=== PATIENT | female | born 1935 | race Caucasian/White ===

== ENCOUNTER → 2020-03-26 13:57 | Outpatient (BNVA) | payer MEDICARE, SELFPAY | PROVIDERS: PCP Family Medicine; Referring Provider Family Medicine; Visit Provider Internal Medicine Endocrinology, Diabetes & Metabolism | DX: E11.65 Type 2 diabetes mellitus with hyperglycemia (principal); E11.22 Type 2 diabetes mellitus with diabetic chronic kidney disease; I12.9 Hypertensive chronic kidney disease with stage 1 through stage 4 chronic kidney disease, or unspecified chronic kidney disease; N18.30 Chronic kidney disease, stage 3 unspecified; E11.42 Type 2 diabetes mellitus with diabetic polyneuropathy; Z79.4 Long term (current) use of insulin; E78.5 Hyperlipidemia, unspecified | CPT/HCPCS: 82947; 99214 ==

== ENCOUNTER 2020-04-04 11:24 | Outpatient (REF) | payer MEDICARE, SELFPAY ==
[2020-04-04 13:41] LABS: Estimated Average Glucose 189 mg/dL; Hemoglobin A1c % 8.2 %
[2020-04-04 14:13] LABS: Alanine Aminotransferase 23 U/L (0-31); Anion Gap 16 (12-20); Blood Urea Nitrogen 32 mg/dL (9-16); Carbon Dioxide 26 mmol/L (22-29); Chloride 102 mmol/L (96-108); Estimated Glomerular Filt Rate 30; Glucose Fasting 203 mg/dL (60-99); Potassium 4.4 mmol/l (3.3-5.1); Sodium 140 mmol/L (135-145)
[2020-04-04 14:29] LABS: Microalbum/Creatinine Ratio Ur 9.3 ug/mg cr
== END 2020-04-04 11:25 | disposition home or self-care (01) ==
LOC: HO.10HDL 11:24
PROVIDERS: Visit Provider Family Medicine
DX: I10 Essential (primary) hypertension (principal); E11.9 Type 2 diabetes mellitus without complications; E78.00 Pure hypercholesterolemia, unspecified; Z79.899 Other long term (current) drug therapy
CPT/HCPCS: 80051; 82043; 82550; 82565; 82947; 83036; 84460; 84520

== ENCOUNTER 2020-07-03 12:10 | Outpatient (REF) | payer MEDICARE, SELFPAY ==
--- NOTE | 2020-07-03 13:52 | MHC.AU.P13 ---
Adult Audiological Evaluation Date of Visit: 07/03/20 Manufacturing Engineer Paint Used: Not Applicable Reason for Appointment: Audiologic re-evaluation due to increasing hearing and speech understanding difficulties. Martina purchased binaural hearing aids at this office 11 years; however, she is not using them at this time as they are not providing enough benefit for her. Previous Hearing Test Results: 03/21/2019 [facility] Moderately-severe to severe sensorineural hearing loss with the right ear being 10-15 dB poorer in the high frequencies. Ear History: Family History of Hearing Loss?: Yes History of Ear Wax Buildup: Both Ears Medical History: Medical History: Diabetes High Blood Pressure Medication List: Humalog Injection, Metroprolol, Furosemide, Asprin, Amlodipine, pravastatin, Sertraline. Furosemide is a medication which may increase hearing loss. Hearing Instrument History- Right Ear: Billing Services Manager: [employer] Model: Series 7 DocTree Serial Number: [id number] Battery Size: 13 Repair Warranty: Loss and Damage Warranty: Dispensed By: [facility] Date of Fittin04/25/2009 Hearing Instrument History- Left Ear: Billing Services Manager: [employer] Model: Series 7 BTE Serial Number: [id number] Battery Size: 13 Warranty: Loss and Damage Warranty: Dispensed By: [facility] Date of Fittin04/25/2009 Otoscopy: Right Ear: Partially occluded with cerumen Left Ear: Partially occluded with cerumen Tympanometry: Right Ear: Not performed at today's visit Left Ear: Not performed at today's visit Hearing Evaluation: Transducer(s) Used: Insert Earphones Bone Conduction Method: Conventional Audiometry Stimuli Used: Pure Tones Right Ear: Description of Hearing: Moderately-severe to severe sensorineural hearing loss Left Ear: Description of Hearing: Moderately-severe to severe sensorineural hearing loss Speech Recognition Threshold (SRT): Method Used: Monitored Live Voice Stimuli Used: Right Ear: 55 dB HL Left Ear: 55 dB HL Word Discrimination: Method: Recorded Lists Word Lists Used: NU-6 Right Ear: 64% at 90 dB HL Left Ear: 76% at 90 dB HL Most Comfortable Level (MCL): Right Ear: 90 dB HL Left Ear: 90 dB HL QuickSIN: 18 dB SNR Loss suggesting Martina experiences severe difficulty understanding speech with increasing levels of background noise. Comparison: Compared to the most recent evaluation: Hearing is stable. Recommendations: Recommendations: Audiological re-evaluation in one year. Trial with amplification is recommended. Medical clearance from a physician is required before fitting. Follow-up with physician for cerumen removal. Recommendations (Other): Hearing Aid Fitting appointment scheduled for 07/21/2020 Diagnosis: Primary Diagnosis: H90.3 Bilateral Sensorineural Hearing Loss Services Performed: Services Performed: Comprehensive Audiological Evaluation (CPT 75109) Signature: Provider: Leonor Palencia, CCC-A
--- NOTE | 2020-07-03 14:04 | MHC.AU.P13 ---
Hearing Aid Evaluation- Binaural Date of Visit: 07/03/20 Mechanical Tech Used: Not Applicable Description of Hearing: Moderately-severe to severe sensorineural hearing loss bilaterally Current Hearing Instrument Information: Binaural 2009 Esther Series 7 BTE with slim tubes Additional Information: Martina reports she is not receiving any benefit from her current hearing aid despite the fact both aids are amplifying. Given the degree of hearing loss, new binaural hearing aids are recommended as part of the remediation process. Hearing Instrument Selection: Right Ear: [employer] Operations: Phonak Model: Audeo P 50-13T Battery Size: 13 Color: Sand Beige Gelatin Dynamite Packing Operator: #3 Power Type of Dome: Medium Power Left Ear: [employer] Operations: Phonak Model: Audeo P 50-13T Battery Size: 13 Color: Sand Beige Gelatin Dynamite Packing Operator: #3 Power Type of Dome: Medium Power Plan: Plan of Care for Hearing Instrument Fitting: Patient wishes to purchase hearing aids as prescribed Action Taken/Action Needed: Medical Clearance to be requested from PCP/ENT Comments: Advise cerumen removal prior to hearing aid fitting scheduled for 07/21/2020 Diagnosis Code(s): Primary Diagnosis: H90.3 Bilateral Sensorineural Hearing Loss Services Performed: Hearing Aid Evaluation [place] Non-Quantity Charges: HANC: NonBillable Event Signature: Provider: Leonor Palencia, LILLY-A
--- NOTE | 2020-07-03 14:08 | MHC.AU.MED ---
Medical Clearance for Hearing Instrumentation Date: 07/03/20 Patient Name: Martina Hurst Date of : 1935 Primary Care Provider: Referring Provider: Raimundo Tse MD We have seen your patient on 07/03/20 and have determined that they are a candidate for amplification (See accompanying report). Specifically, they would benefit from: Hearing aid use in both ears There is a statute that addresses Medical Evaluation Requirements prior to fitting a patient with a hearing aid. According to [place] statute 265 CMR:6.03(1), (a) General. Except as provided in 265 CMR 6.03(1)(b), a electrician shall not sell a hearing aid unless the prospective user has presented to the electrician a written statement signed by a licensed physician that states that the patient's hearing loss has been medically evaluated and the patient may be considered a candidate for a hearing aid. The medical evaluation must have taken place within the preceding six months. Please note: Due to the [place] Statute referenced above, we cannot accept a signature other than that of a licensed physician. WORKFORCE DEVELOPMENT VICE PRESIDENT and PA signatures cannot be accepted. I am in agreement with the above recommendation. There is no medical contraindication for hearing instrumentation. Physician Signature Date Physician Name (Printed)
== END 2020-07-03 12:11 | disposition home or self-care (01) ==
LOC: HO.SH 12:10
PROVIDERS: Visit Provider Family Medicine
DX: H90.3 Sensorineural hearing loss, bilateral (principal)
CPT/HCPCS: 92557

== ENCOUNTER → 2020-07-15 08:20 | Outpatient (BNVA) | payer MEDICARE, SELFPAY | PROVIDERS: PCP Family Medicine; Visit Provider Internal Medicine Endocrinology, Diabetes & Metabolism | DX: E11.65 Type 2 diabetes mellitus with hyperglycemia (principal); E11.21 Type 2 diabetes mellitus with diabetic nephropathy; E11.22 Type 2 diabetes mellitus with diabetic chronic kidney disease; E11.42 Type 2 diabetes mellitus with diabetic polyneuropathy; I12.9 Hypertensive chronic kidney disease with stage 1 through stage 4 chronic kidney disease, or unspecified chronic kidney disease; N18.32 Chronic kidney disease, stage 3b; Z79.4 Long term (current) use of insulin | CPT/HCPCS: Q3014 ==

== ENCOUNTER 2020-07-30 11:16 | Outpatient (REF) | payer SELFPAY | END 2020-07-30 11:17 | disposition home or self-care (01) | LOC: HO.HAP 11:16 | PROVIDERS: Visit Provider Family Medicine | DX: Z46.1 Encounter for fitting and adjustment of hearing aid (principal); H90.3 Sensorineural hearing loss, bilateral | CPT/HCPCS: V5261 ==

== ENCOUNTER 2020-08-14 12:12 | Outpatient (REF) | payer SELFPAY | END 2020-08-14 12:13 | disposition home or self-care (01) | LOC: HO.HAP 12:12 | PROVIDERS: Visit Provider Family Medicine | DX: Z13.89 Encounter for screening for other disorder (principal) ==

== ENCOUNTER 2020-08-15 12:19 | Outpatient (REF) | payer MEDICARE, SELFPAY ==
[2020-08-15 14:24] LABS: Alanine Aminotransferase 19 U/L (0-31); Anion Gap 11 (12-20); Blood Urea Nitrogen 25 mg/dL (9-16); Carbon Dioxide 29 mmol/L (22-29); Chloride 104 mmol/L (96-108); Estimated Glomerular Filt Rate 33; Glucose Fasting 166 mg/dL (60-99); Potassium 4.3 mmol/L (3.3-5.1); Sodium 140 mmol/L (135-145)
[2020-08-15 14:27] LABS: Estimated Average Glucose 192 mg/dL; Hemoglobin A1c % 8.3 %
== END 2020-08-15 12:20 | disposition home or self-care (01) ==
LOC: HO.10HDL 12:19
PROVIDERS: Absent Provider Internal Medicine Endocrinology, Diabetes & Metabolism; Visit Provider Family Medicine
DX: I10 Essential (primary) hypertension (principal); E11.9 Type 2 diabetes mellitus without complications; E78.00 Pure hypercholesterolemia, unspecified; Z79.899 Other long term (current) drug therapy
CPT/HCPCS: 36415; 80051; 82550; 82565; 82947; 83036; 84460; 84520

== ENCOUNTER 2020-08-28 12:17 | Outpatient (REF) | payer SELFPAY | END 2020-08-28 12:18 | disposition home or self-care (01) | LOC: HO.HAP 12:17 | PROVIDERS: Visit Provider Family Medicine | DX: Z13.89 Encounter for screening for other disorder (principal) ==

== ENCOUNTER 2020-09-11 12:12 | Outpatient (REF) | payer SELFPAY | END 2020-09-11 12:13 | disposition home or self-care (01) | LOC: HO.HAP 12:12 | PROVIDERS: Visit Provider Family Medicine | DX: Z13.89 Encounter for screening for other disorder (principal) ==

== ENCOUNTER → 2020-10-13 13:37 | Outpatient (BNVA) | payer MEDICARE, SELFPAY | PROVIDERS: PCP Family Medicine; Visit Provider Internal Medicine Endocrinology, Diabetes & Metabolism | DX: E11.65 Type 2 diabetes mellitus with hyperglycemia (principal); E11.21 Type 2 diabetes mellitus with diabetic nephropathy; E11.42 Type 2 diabetes mellitus with diabetic polyneuropathy; E11.22 Type 2 diabetes mellitus with diabetic chronic kidney disease; I12.9 Hypertensive chronic kidney disease with stage 1 through stage 4 chronic kidney disease, or unspecified chronic kidney disease; N18.32 Chronic kidney disease, stage 3b; E78.5 Hyperlipidemia, unspecified; Z79.4 Long term (current) use of insulin | CPT/HCPCS: 82947; 99212 ==

== ENCOUNTER → 2021-02-23 13:44 | Outpatient (BNVA) | payer MEDICARE, SELFPAY | PROVIDERS: PCP Family Medicine; Visit Provider Nurse Practitioner Gerontology | DX: E11.42 Type 2 diabetes mellitus with diabetic polyneuropathy (principal); E11.21 Type 2 diabetes mellitus with diabetic nephropathy; E11.22 Type 2 diabetes mellitus with diabetic chronic kidney disease; I12.9 Hypertensive chronic kidney disease with stage 1 through stage 4 chronic kidney disease, or unspecified chronic kidney disease; N18.32 Chronic kidney disease, stage 3b; E78.5 Hyperlipidemia, unspecified; Z79.4 Long term (current) use of insulin | CPT/HCPCS: 82947; 83036; 99212 ==

== ENCOUNTER 2021-06-10 10:35 | Outpatient (REF) | payer MEDICARE, SELFPAY ==
[2021-06-10 11:37] LABS: Estimated Average Glucose 212 mg/dL
[2021-06-10 11:53] LABS: Creatinine Urine 164.06 mg/dL; Microalbum/Creatinine Ratio Ur 10.3 ug/mg cr
[2021-06-10 12:02] LABS: Alanine Aminotransferase 19 U/L (0-31); Anion Gap 11 (12-20); Aspartate Amino Transferase 21 U/L (5-31); Blood Urea Nitrogen 31 mg/dL (9-16); Carbon Dioxide 29 mmol/L (22-29); Chloride 102 mmol/L (96-108); Estimated Glomerular Filt Rate 30; Glucose Fasting 232 mg/dL (60-99); Potassium 4.2 mmol/L (3.3-5.1); Sodium 138 mmol/L (135-145)
== END 2021-06-10 10:36 | disposition home or self-care (01) ==
LOC: HO.10HDL 10:35
PROVIDERS: Visit Provider Family Medicine
DX: E11.9 Type 2 diabetes mellitus without complications (principal); I10 Essential (primary) hypertension; K75.81 Nonalcoholic steatohepatitis (NASH)
CPT/HCPCS: 36415; 80051; 82043; 82565; 82947; 83036; 84450; 84460; 84520

== ENCOUNTER → 2021-08-24 13:46 | Outpatient (BNVA) | payer MEDICARE, SELFPAY | PROVIDERS: PCP Family Medicine; Visit Provider Nurse Practitioner Gerontology | DX: E11.42 Type 2 diabetes mellitus with diabetic polyneuropathy (principal); I12.9 Hypertensive chronic kidney disease with stage 1 through stage 4 chronic kidney disease, or unspecified chronic kidney disease; E11.22 Type 2 diabetes mellitus with diabetic chronic kidney disease; N18.32 Chronic kidney disease, stage 3b; E78.5 Hyperlipidemia, unspecified; Z79.4 Long term (current) use of insulin | CPT/HCPCS: 82947; 83036; 99212 ==

== ENCOUNTER 2021-08-24 15:05 | Outpatient (REF) | payer SELFPAY | END 2021-08-24 15:06 | disposition home or self-care (01) | LOC: HO.HAP 15:05 | PROVIDERS: Visit Provider Family Medicine | DX: Z13.89 Encounter for screening for other disorder (principal) ==

== ENCOUNTER 2021-08-28 13:42 | Outpatient (REF) | payer SELFPAY | END 2021-08-28 13:43 | disposition home or self-care (01) | LOC: HO.HAP 13:42 | PROVIDERS: Visit Provider Family Medicine | DX: Z13.89 Encounter for screening for other disorder (principal) ==

== ENCOUNTER 2021-11-11 13:11 | Outpatient (REF) | payer MEDICARE, SELFPAY ==
[2021-11-11 14:27] LABS: Alanine Aminotransferase 22 U/L (0-31); Albumin Level 4.6 g/dL (3.5-5.0); Alkaline Phosphatase 95 U/L (39-117); Anion Gap 16 (12-20); Aspartate Amino Transferase 27 U/L (5-31); Bilirubin Total 0.3 mg/dL (0.0-1.0); Blood Urea Nitrogen 26 mg/dL (9-16); Calcium 10.1 mg/dL (8.4-10.2); Carbon Dioxide 25 mmol/L (22-29); Chloride 103 mmol/L (96-108); Cholesterol 198 mg/dL; Estimated Glomerular Filt Rate 29; Glucose Fasting 191 mg/dL (60-99); HDL Cholesterol 47 mg/dL; LDL Cholesterol Calculated 112 mg/dl; Potassium 4.5 mmol/L (3.3-5.1); Sodium 139 mmol/L (135-145); Total Protein 7.6 g/dL (6.5-8.0); Triglycerides 198 mg/dL
[2021-11-11 14:28] LABS: Alanine Aminotransferase 22 U/L (0-31); Anion Gap 15 (12-20); Aspartate Amino Transferase 27 U/L (5-31); Blood Urea Nitrogen 27 mg/dL (9-16); Carbon Dioxide 25 mmol/L (22-29); Chloride 104 mmol/L (96-108); Cholesterol 199 mg/dL; Estimated Glomerular Filt Rate 29; Glucose Fasting 190 mg/dL (60-99); HDL Cholesterol 46 mg/dL; LDL Cholesterol Calculated 113 mg/dl; Potassium 4.5 mmol/L (3.3-5.1); Sodium 139 mmol/L (135-145); Triglycerides 200 mg/dL
[2021-11-11 14:53] LABS: Vitamin B12 931 pg/mL (200-900)
[2021-11-11 15:53] LABS: Creatinine Urine 225.96 mg/dL; Microalbum/Creatinine Ratio Ur 37.6 ug/mg cr
[2021-11-11 17:07] LABS: Estimated Average Glucose 171 mg/dL; Hemoglobin A1c % 7.6 %
== END 2021-11-11 13:12 | disposition home or self-care (01) ==
LOC: HO.LAB 13:11
PROVIDERS: Nurse Practitioner Gerontology; PCP Family Medicine; Visit Provider Family Medicine
DX: E11.21 Type 2 diabetes mellitus with diabetic nephropathy (principal); E11.65 Type 2 diabetes mellitus with hyperglycemia; I10 Essential (primary) hypertension; E78.00 Pure hypercholesterolemia, unspecified; Z79.899 Other long term (current) drug therapy
CPT/HCPCS: 36415; 80051; 80053; 80061; 82043; 82550; 82565; 82607; 82947; 83036; 84450; 84460; 84520; 95250

== ENCOUNTER 2021-11-19 11:57 | Outpatient (REF) | payer SELFPAY | END 2021-11-19 11:58 | disposition home or self-care (01) | LOC: HO.HAP 11:57 | PROVIDERS: Visit Provider Family Medicine | DX: Z13.89 Encounter for screening for other disorder (principal) ==

== ENCOUNTER → 2021-12-02 09:19 | Outpatient (BNVA) | payer MEDICARE, SELFPAY | PROVIDERS: PCP Family Medicine; Visit Provider Nurse Practitioner Gerontology | DX: E11.21 Type 2 diabetes mellitus with diabetic nephropathy (principal); E11.42 Type 2 diabetes mellitus with diabetic polyneuropathy; E11.22 Type 2 diabetes mellitus with diabetic chronic kidney disease; I12.9 Hypertensive chronic kidney disease with stage 1 through stage 4 chronic kidney disease, or unspecified chronic kidney disease; N18.32 Chronic kidney disease, stage 3b; E78.5 Hyperlipidemia, unspecified; Z79.4 Long term (current) use of insulin | CPT/HCPCS: Q3014 ==

== ENCOUNTER 2022-07-01 09:32 | Outpatient (REF) | payer MEDICARE, SELFPAY ==
[2022-07-01 10:44] LABS: Estimated Average Glucose 209 mg/dL; Hemoglobin A1c % 8.9 %
[2022-07-01 11:08] LABS: Alanine Aminotransferase 14 U/L (0-31); Anion Gap 12 (12-20); Aspartate Amino Transferase 18 U/L (5-31); Blood Urea Nitrogen 27 mg/dL (9-16); Carbon Dioxide 27 mmol/L (22-29); Chloride 104 mmol/L (96-108); Estimated Glomerular Filt Rate 34; Glucose Fasting 230 mg/dL (60-99); Potassium 4.1 mmol/L (3.3-5.1); Sodium 139 mmol/L (135-145)
== END 2022-07-01 09:33 | disposition home or self-care (01) ==
LOC: HO.10HDL 09:32
PROVIDERS: Visit Provider Family Medicine
DX: I10 Essential (primary) hypertension (principal); E11.9 Type 2 diabetes mellitus without complications; K75.81 Nonalcoholic steatohepatitis (NASH)
CPT/HCPCS: 36415; 80051; 82565; 82947; 83036; 84450; 84460; 84520

== ENCOUNTER 2022-11-15 10:09 | Outpatient (REF) | payer MEDICARE, SELFPAY ==
[2022-11-15 11:45] LABS: Estimated Average Glucose 189 mg/dL; Hemoglobin A1c % 8.2 %
[2022-11-15 11:56] LABS: Alanine Aminotransferase 15 U/L (0-31); Anion Gap 12 (12-20); Aspartate Amino Transferase 20 U/L (5-31); Blood Urea Nitrogen 23 mg/dL (9-16); Carbon Dioxide 27 mmol/L (22-29); Chloride 106 mmol/L (96-108); Estimated Glomerular Filt Rate 34; Glucose Fasting 210 mg/dL (60-99); Potassium 4.4 mmol/L (3.3-5.1); Sodium 141 mmol/L (135-145)
[2022-11-15 12:01] LABS: Microalbum/Creatinine Ratio Ur 33.2 ug/mg cr
== END 2022-11-15 10:10 | disposition home or self-care (01) ==
LOC: HO.10HDL 10:09
PROVIDERS: Visit Provider Family Medicine
DX: E11.9 Type 2 diabetes mellitus without complications (principal); I10 Essential (primary) hypertension; K75.81 Nonalcoholic steatohepatitis (NASH)
CPT/HCPCS: 36415; 80051; 82043; 82565; 82947; 83036; 84450; 84460; 84520

== ENCOUNTER 2022-12-17 14:37 | Outpatient (REF) | payer SELFPAY | END 2022-12-17 14:38 | disposition home or self-care (01) | LOC: HO.HAP 14:37 | PROVIDERS: Visit Provider Family Medicine | DX: Z13.89 Encounter for screening for other disorder (principal) ==

== ENCOUNTER 2023-08-12 10:21 | Outpatient (REF) | payer MEDICARE, SELFPAY ==
[2023-08-12 11:42] LABS: Estimated Average Glucose 192 mg/dL; Hemoglobin A1c % 8.3 % (<6.0)
[2023-08-12 11:54] LABS: Alanine Aminotransferase 14 U/L (0-31); Anion Gap 13 (12-20); Aspartate Amino Transferase 19 U/L (5-31); Blood Urea Nitrogen 24 mg/dL (9-16); Carbon Dioxide 29 mmol/L (22-29); Chloride 104 mmol/L (96-108); Estimated Glomerular Filt Rate 35; Glucose Fasting 226 mg/dL (60-99); Potassium 3.8 mmol/L (3.3-5.1); Sodium 142 mmol/L (135-145)
[2023-08-12 12:05] LABS: Creatinine Urine 132.69 mg/dL; Microalbum/Creatinine Ratio Ur 30.1 ug/mg cr (<30)
[2023-08-22 16:28] LABS: FIB-ALT 13 U/L (6-29); FIB-Alpha-2-Macroglobulin 284 mg/dL (106-279); FIB-Apolipoprotein A1 179 mg/dL (101-198); FIB-GGT 31 U/L (3-65); FIB-Haptoglobin 152 mg/dL (43-212); FIB-Total Bilirubin 0.5 mg/dL (0.2-1.2); Liver Fibrosis Score 0.43; Liver Fibrosis Stage F1-F2; Nec Inflam Act Grade A0; Nec Inflam Act Score 0.05
== END 2023-08-12 10:22 | disposition home or self-care (01) ==
LOC: HO.10HDL 10:21
PROVIDERS: Internal Medicine; Visit Provider Family Medicine
DX: I10 Essential (primary) hypertension (principal); E11.9 Type 2 diabetes mellitus without complications; K75.81 Nonalcoholic steatohepatitis (NASH)
CPT/HCPCS: 36415; 80051; 81596; 82043; 82565; 82570; 82947; 83036; 84450; 84460; 84520

== ENCOUNTER 2024-01-16 09:45 | Outpatient (REF) | payer MEDICARE, SELFPAY ==
[2024-01-16 14:31] LABS: Estimated Average Glucose 160 mg/dL; Hemoglobin A1c % 7.2 % (<6.0)
[2024-01-16 14:46] LABS: Alanine Aminotransferase 13 U/L (0-31); Anion Gap 14 (12-20); Aspartate Amino Transferase 20 U/L (5-31); Blood Urea Nitrogen 28 mg/dL (9-16); Carbon Dioxide 27 mmol/L (22-29); Chloride 106 mmol/L (96-108); Estimated Glomerular Filt Rate 40; Glucose Fasting 44 mg/dL (60-99); Potassium 3.7 mmol/L (3.3-5.1); Sodium 143 mmol/L (135-145)
[2024-01-16 17:25] LABS: Estimated Average Glucose 163 mg/dL; Hemoglobin A1c % 7.3 % (<6.0)
[2024-01-16 17:26] LABS: Microalbum/Creatinine Ratio Ur 33.7 ug/mg cr (<30)
[2024-01-16 17:31] LABS: Alanine Aminotransferase 14 U/L (0-31); Anion Gap 12 (12-20); Aspartate Amino Transferase 19 U/L (5-31); Blood Urea Nitrogen 31 mg/dL (9-16); Carbon Dioxide 29 mmol/L (22-29); Chloride 105 mmol/L (96-108); Estimated Glomerular Filt Rate 32; Glucose Fasting 185 mg/dL (60-99); Potassium 3.7 mmol/L (3.3-5.1); Sodium 142 mmol/L (135-145)
[2024-01-16 18:09] LABS: Creatinine Urine 142.62 mg/dL; Microalbum/Creatinine Ratio Ur 34.3 ug/mg cr (<30)
[2024-01-23 01:39] LABS: FIB-ALT 11 U/L (6-29); FIB-Alpha-2-Macroglobulin 289 mg/dL (106-279); FIB-Apolipoprotein A1 171 mg/dL (101-198); FIB-GGT 27 U/L (3-65); FIB-Haptoglobin 121 mg/dL (43-212); FIB-Total Bilirubin 0.3 mg/dL (0.2-1.2); Liver Fibrosis Score 0.39; Liver Fibrosis Stage F1-F2; Nec Inflam Act Grade A0; Nec Inflam Act Score 0.03
== END 2024-01-16 09:46 | disposition home or self-care (01) ==
LOC: HO.CHCLDS 09:45
PROVIDERS: PCP Family Medicine; Visit Provider Family Medicine
DX: E11.9 Type 2 diabetes mellitus without complications (principal); I10 Essential (primary) hypertension; K75.81 Nonalcoholic steatohepatitis (NASH)
CPT/HCPCS: 36415; 80051; 81596; 82043; 82565; 82570; 82947; 83036; 84450; 84460; 84520

== ENCOUNTER 2024-01-19 19:29 | Observation (INO) | payer MEDICARE, SELFPAY ==
--- NOTE | 2024-01-19 | ECG_ITS ---
Test Reason : LOW HEART RATE Blood Pressure : / mmHG Vent. Rate : 051 BPM Atrial Rate : 051 BPM P-R Int : 194 ms QRS Dur : 134 ms QT Int : 516 ms P-R-T Axes : 037 007 051 degrees QTc Int : 475 ms Sinus bradycardia Right bundle branch block Abnormal ECG When compared with ECG of 04-SEP-2018 23:07, No significant change was found Referred By: Generic ED Physician Electronically Signed By:HARVINDER PORTER MD
--- NOTE | ~2024-01-19 | XR_ITS ---
EXAMINATION: CHEST 2 VIEWS CLINICAL INFORMATION: Infectious workup. COMPARISON: 09/04/2018. TECHNIQUE: PA and lateral views of the chest obtained. FINDINGS: The lungs are well expanded. No focal infiltrate, effusion, edema, or pneumothorax. Cardiac and mediastinal silhouettes are within normal limits for technique. No acute bony abnormality seen XR/XR chest 2V IMPRESSION: No evidence of acute disease
[2024-01-19 19:42] LABS: Glucose, Whole Blood 127 mg/dL (60-115)
[2024-01-19 19:52] VITALS: BP 168/66; PULSE 57; O2SAT 98
[2024-01-19 20:02] VITALS: BP 156/60; PULSE 48; RESP 14; TEMP 36.8; O2SAT 100; BMI 23.4
[2024-01-19 21:06] LABS: MANUAL DIFF FLAG NO
[2024-01-19 21:11] LABS: Basophils Percent Auto 0.5 % (0-2); Eosinophils Absolute Auto 0.1 X10*3/uL (0.0-0.4); Eosinophils Percent Auto 1.1 % (0-4); Hematocrit 38.1 % (37.0-47.0); Imm Gran Abs Auto 0.03 X10*3/uL (0.00-0.03); Imm Gran Pct Auto 0.4 % (0.0-0.4); Lymphocytes Absolute Auto 1.1 X10*3/uL (1.2-4.9); Lymphocytes Percent Auto 13.3 % (20-40); Mean Corpuscular HGB Conc 34.1 g/dl (31.0-35.0); Mean Corpuscular Volume 93.8 fL (80.0-98.0); Mean Platelet Volume 10.3 fL (9.4-12.3); Monocytes Absolute Auto 0.7 X10*3/uL (0.1-1.2); Neutrophils Absolute Auto 6.1 x10*3/uL (2.0-8.3); Neutrophils Percent Auto 75.7 % (45-73); Platelet Count 199 X10*3/uL (160-400); Red Blood Count 4.06 X10*6/uL (4.20-5.50); Red Cell Distribution Width 13.5 % (11.0-16.0)
[2024-01-19 21:23] LABS: Alanine Aminotransferase 16 U/L (0-31); Albumin Level 4.7 g/dL (3.5-5.0); Alkaline Phosphatase 94 U/L (39-117); Anion Gap 13 (12-20); Aspartate Amino Transferase 23 U/L (5-31); Bilirubin Total 0.3 mg/dL (0.0-1.0); Blood Urea Nitrogen 28 mg/dL (9-16); Calcium 9.6 mg/dL (8.4-10.2); Carbon Dioxide 26 mmol/L (22-29); Chloride 108 mmol/L (96-108); Creatinine Clr Calc Pharmacy 19.5; Estimated Glomerular Filt Rate 35; Glucose Random 98 mg/dL (60-115); Potassium 3.8 mmol/L (3.3-5.1); Sodium 143 mmol/L (135-145); Total Protein 7.5 g/dL (6.5-8.0)
--- NOTE | 2024-01-19 22:32 | ED.GENADULT ---
HPI - General Adult General Chief complaint: General Medical Stated complaint: hypoglycemia, ams Time Seen by Provider: 01/19/24 20:22 History of Present Illness ED Provider: Deuce BRUNO narrative: 88-year-old with past medical history of diabetes, depression, hypertension, dyslipidemia, CKD presenting for presyncope and hypoglycemia. Patient was playing bingo with friends when she became altered. Patient reports experiencing dizziness and almost losing consciousness. There was no fall and EMS was called immediately and found her to be hyperglycemic to the 60s. She was given oral glucose with good effect. Patient arrived to the ED alert and oriented with no active complaints. Patient states that she feels that she is almost at baseline however she also reports that she has been experiencing intermittent hypoglycemia to the 50s for the past 2-3 days Related Data Home Medications ?Medication ?Instructions ?Recorded ?Confirmed amlodipine 10 mg tablet 10 mg PO DAILY 03/26/20 12/02/21 aspirin 81 mg tablet,delayed 81 mg PO DAILY 03/26/20 12/02/21 release (Adult Aspirin Regimen) furosemide 20 mg tablet 20 mg PO DAILY 03/26/20 08/24/21 metoprolol tartrate 25 mg tablet 25 mg PO BID 03/26/20 12/02/21 iyhhgels-bpy-mkjqi acid 0.4 1 tab PO DAILY 03/26/20 12/02/21 mg-lycopene 300 mcg-lutein 250 mcg tablet (Centrum Silver) pravastatin 10 mg tablet 10 mg PO DAILY 03/26/20 12/02/21 sertraline 50 mg tablet 25 mg PO BEDTIME 07/15/20 02/23/21 magnesium 250 mg tablet 250 mg PO DAILY 02/23/21 02/23/21 blood sugar diagnostic (FreeStyle #10 ea 12/02/21 12/02/21 Lite Strips) pantoprazole 40 mg tablet,delayed 40 mg PO DAILY 12/02/21 12/02/21 release Previous Rx's ?Medication ?Instructions ?Recorded pen needle, diabetic 32 gauge x #200 ea 12/02/21 (BD Sheila 2nd Gen Pen Needle) Novolog Mix 70-30 FlexPen U-100 24 unit (0.24 mL) subcut BID 30 12/07/21 Insulin 100 unit/mL subcutaneous days #30 mL pen (insulin asp prt-insulin aspart) Allergies Allergy/AdvReac Type Severity Reaction Status Date / Time atenolol Allergy Unknown Unknown Verified 01/19/24 20:04 atorvastatin Allergy Unknown Unknown Verified 01/19/24 20:04 diltiazem [Cardizem] Allergy Unknown Unknown Verified 01/19/24 20:04 fluoxetine [Prozac] Allergy Unknown Unknown Verified 01/19/24 20:04 gabapentin [Neurontin] Allergy Unknown Unknown Verified 01/19/24 20:04 loratadine Allergy Unknown Unknown Verified 01/19/24 20:04 No Known Drug Allergies Allergy Unknown NONE Unverified 02/28/20 16:34 [NO KNOWN DRUG ALLERGIES] simvastatin [Zocor] Allergy Unknown Unknown Verified 01/19/24 20:04 zolpidem [Ambien] Allergy Unknown Unknown Verified 01/19/24 20:04 Elavil Allergy Unknown Unknown Uncoded 01/19/24 20:01 Review of Systems Review of Systems: Patient had complaints of dizziness and weakness She denies head pain, neck pain, chest pain, shortness of breath, abdominal pain, nausea, vomiting, urinary symptoms, diarrhea Yes all other systems are reviewed and are negative PMF Past Medical History Medical History DM2 (diabetes mellitus, type 2) Diabetic polyneuropathy associated with type 2 diabetes mellitus Depression GERD (gastroesophageal reflux disease) 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 Hypertension Dyslipidemia CKD (chronic kidney disease) stage 3, GFR 30-59 ml/min Diabetic nephropathy associated with type 2 diabetes mellitus Diabetes type 2, uncontrolled Surgical History History of repair of rectocele Hx of hysterectomy Family History Family History Father Diabetes Mother Diabetes Social History Social History Household Members: None Alcohol intake: never Patient Tobacco Use Status: Never used Tobacco Smoked in Last 30 Days: No Use of substances other than those prescribed or required for medical reasons: No Advance Directives: No Advance Directives Information Provided: No Do you have a plan to hurt others: No Plan Nutrition Risks: No Nutritional Risk Physical Exam ED Vital Signs: Vital Signs - 24 hr 01/19/24 20:02 01/19/24 23:07 01/20/24 00:50 Temperature 98.2 F 97.8 F 98.0 F Pulse Rate 48 L 54 52 Respiratory Rate 14 22 H 19 Blood Pressure 156/60 H 157/72 H 150/67 H Pulse Oximetry 100 97 97 Oxygen Delivery Method Room Air Room Air Room Air BMI result Body Mass Index 23.4 Course Course Course Narrative: Labs ordered Medications Administered Discontinued Medications Generic Name Dose Route Start Last Admin Trade Name Freq PRN Reason Stop Dose Admin Ceftriaxone Sodium 1 gm/ 50 mls @ 100 mls/hr 01/20/24 00:15 01/20/24 01:02 Sodium Chloride IV 01/20/24 00:44 Infused ONCE ONE Infusion Medical Decision Making Medical Decision Making [facility] Narrative: Patient is presenting for hyperglycemia. Given her underlying diabetes I am concerned that she may have given herself too much insulin. She states that she has been experiencing hypoglycemia for the past 2-3 days. This could be due to an underlying infection or to her administering too much insulin I considered stroke and cardiac cause for patient's symptoms however this is less likely; patient has no focal neurologic deficits on exam and her EKG is similar to baseline without any new ischemic changes UA is concerning for UTI; I ordered antibiotics for this Given multiple days of hypoglycemia I feel the patient should be admitted for observation/glucose checks and possible change in her home insulin regimen if she has truly been hypoglycemic and it is not due to her underlying UTI Patient admitted under hospitalist Differential Diagnosis Differential Diagnoses: The differential diagnosis associated with the presentation includes Hypoglycemia, underlying infection, inappropriate insulin dosing/administration Consult Healthcare Provider Management of the patient was discussed with: Hospitalist Lab Data [facility] Lab Attestation statement: I reviewed the patient's lab results. UA concerning for UTI 01/19/24 21:00 01/19/24 21:00 Labs: Lab Results 01/19/24 01/19/24 01/19/24 Range/Units 19:39 21:00 22:31 WBC 8.0 (4.8-10.8) X10*3/uL RBC 4.06 L (4.20-5.50) X10*6/uL Hgb 13.0 (12.0-16.0) g/dl Hct 38.1 (37.0-47.0) % MCV 93.8 (80.0-98.0) fL MCH 32.0 (27.0-33.0) pg MCHC 34.1 (31.0-35.0) g/dl RDW 13.5 (11.0-16.0) % Plt Count 199 (160-400) X10*3/uL MPV 10.3 (9.4-12.3) fL Immature Gran % (Auto) 0.4 (0.0-0.4) % Neut % (Auto) 75.7 H (45-73) % Lymph % (Auto) 13.3 L (20-40) % [place] % (Auto) 9.0 (2-11) % Eos % (Auto) 1.1 (0-4) % Baso % (Auto) 0.5 (0-2) % Lymph # (Auto) 1.1 L (1.2-4.9) X10*3/uL [place] # (Auto) 0.7 (0.1-1.2) X10*3/uL Eos # (Auto) 0.1 (0.0-0.4) X10*3/uL Baso # (Auto) 0.0 (0.0-0.2) X10*3/uL Abs Immat Gran (auto) 0.03 (0.00-0.03) X10*3/uL Absolute Neuts (auto) 6.1 (2.0-8.3) x10*3/uL Absolute Nucleated RBC 0.000 (0.0-0.012) X10*3/uL Nucleated RBC % (auto) 0.0 (0.0-0.2) /100WBC Sodium 143 (135-145) mmol/L Potassium 3.8 (3.3-5.1) mmol/L Chloride 108 (96-108) mmol/L Carbon Dioxide 26 (22-29) mmol/L Anion Gap 13 (12-20) BUN 28 H (9-16) mg/dL Creatinine 1.43 H (0.5-1.4) mg/dL Estim Creat Clear Calc 19.5 Estimated GFR 35 POC Glucose 127 H 99 (60-115) mg/dL Random Glucose 98 (60-115) mg/dL Calcium 9.6 (8.4-10.2) mg/dL Total Bilirubin 0.3 (0.0-1.0) mg/dL AST 23 (5-31) U/L ALT 16 (0-31) U/L Alkaline Phosphatase 94 (39-117) U/L Troponin I High Sens (<3.5-17.0) ng/L Total Protein 7.5 (6.5-8.0) g/dL Albumin 4.7 (3.5-5.0) g/dL Urine Color Urine Appearance Urine pH (5.0-9.0) Ur Specific [place] (1.005-1.025) Urine Protein (Neg-Trace) mg/dL Urine Glucose (UA) (Negative) mg/dL Urine Ketones (Negative) mg/dL Urine Blood (Negative) Urine Nitrite (Negative) Ur Leukocyte Esterase (Negative) Urine RBC (0-2) /HPF Urine WBC (0-5) /HPF Ur Squamous Epith Cells (0-2) /HPF Urine Bacteria (None Seen) Hyaline Casts (0-2) /LPF 01/19/24 01/19/24 Range/Units 22:46 22:55 WBC (4.8-10.8) X10*3/uL RBC (4.20-5.50) X10*6/uL Hgb (12.0-16.0) g/dl Hct (37.0-47.0) % MCV (80.0-98.0) fL MCH (27.0-33.0) pg MCHC (31.0-35.0) g/dl RDW (11.0-16.0) % Plt Count (160-400) X10*3/uL MPV (9.4-12.3) fL Immature Gran % (Auto) (0.0-0.4) % Neut % (Auto) (45-73) % Lymph % (Auto) (20-40) % [place] % (Auto) (2-11) % Eos % (Auto) (0-4) % Baso % (Auto) (0-2) % Lymph # (Auto) (1.2-4.9) X10*3/uL [place] # (Auto) (0.1-1.2) X10*3/uL Eos # (Auto) (0.0-0.4) X10*3/uL Baso # (Auto) (0.0-0.2) X10*3/uL Abs Immat Gran (auto) (0.00-0.03) X10*3/uL Absolute Neuts (auto) (2.0-8.3) x10*3/uL Absolute Nucleated RBC (0.0-0.012) X10*3/uL Nucleated RBC % (auto) (0.0-0.2) /100WBC Sodium (135-145) mmol/L Potassium (3.3-5.1) mmol/L Chloride (96-108) mmol/L Carbon Dioxide (22-29) mmol/L Anion Gap (12-20) BUN (9-16) mg/dL Creatinine (0.5-1.4) mg/dL Estim Creat Clear Calc Estimated GFR POC Glucose (60-115) mg/dL Random Glucose (60-115) mg/dL Calcium (8.4-10.2) mg/dL Total Bilirubin (0.0-1.0) mg/dL AST (5-31) U/L ALT (0-31) U/L Alkaline Phosphatase (39-117) U/L Troponin I High Sens < 2.7 (<3.5-17.0) ng/L Total Protein (6.5-8.0) g/dL Albumin (3.5-5.0) g/dL Urine Color Yellow Urine Appearance Clear Urine pH 7.5 (5.0-9.0) Ur Specific [place] 1.010 (1.005-1.025) Urine Protein Negative (Neg-Trace) mg/dL Urine Glucose (UA) Negative (Negative) mg/dL Urine Ketones Negative (Negative) mg/dL Urine Blood Negative (Negative) Urine Nitrite Positive H (Negative) Ur Leukocyte Esterase Moderate (2+) H (Negative) Urine RBC 0-2 (0-2) /HPF Urine WBC 6-10 H (0-5) /HPF Ur Squamous Epith Cells 0-2 (0-2) /HPF Urine Bacteria 4+ (None Seen) Hyaline Casts 0-2 (0-2) /LPF Independent Interpretation I performed an independent interpretation of an: EKG Interpretation: No ischemic changes Tests considered The following testing was considered but not selected: I considered ordering a CTA of her head however given her underlying kidney issue and low pretest probability of stroke I held off on ordering If her mental status changes I will reconsider Discharge Plan Discharge Clinical Impression: Hypoglycemia, UTI (urinary tract infection) Patient Disposition: Admitted As Inpatient
[2024-01-19 22:35] LABS: Glucose, Whole Blood 99 mg/dL (60-115)
[2024-01-19 23:02] LABS: Appearance Urine Clear; Color Urine Yellow; Glucose Urine UA Negative (Negative); Leukocyte Esterase Urine Moderate (2+) (Negative); Nitrite Urine Positive (Negative); PH 7.5 (5.0-9.0); UMIC TRIGGER UACC YES; Urine Blood Negative (Negative); Urine Ketones Negative (Negative); Urine Protein Negative (Neg-Trace)
[2024-01-19 23:07] VITALS: BP 157/72; PULSE 54; RESP 22; TEMP 36.6; O2SAT 97
[2024-01-19 23:07] LABS: Bacteria Urine 4+ (None Seen); Hyaline Casts Urine 0-2 /LPF (0-2); RBC Urine 0-2 /HPF (0-2); Squamous Epithelial Cell Urine 0-2 /HPF (0-2); UACC Culture Trigger YES
[2024-01-19 23:09] LABS: Troponin-I High Sensitivity < 2.7 ng/L (<3.5-17.0)
[2024-01-20] VITALS (8 sets, daily range): BP systolic 129–159; BP diastolic 57–99; PULSE 50–68; RESP 12–19; TEMP 36.1–36.7; O2SAT 96–99
[2024-01-20] MEDS: cefTRIAXone sodium 1 GM in 0.9 % Sodium Chloride 50 ML IV ×2 (00:25→20:40)
--- NOTE | 2024-01-20 00:39 | PC.NURSE ---
called pt's daughter to give her update at patient's request. plan for pt to be admitted for uti and hypoglycemia.
--- NOTE | 2024-01-20 00:40 | PC.NURSE ---
pt given sugar free monica shyla and tuna sandwich at her [facility]. MD benavides'd
--- NOTE | 2024-01-20 01:02 | P.HPHOSP_ITS ---
History of Present Illness Date of Service: 01/20/24 Chief Complaint: presyncope 88F PMH DM, htn, mood disorder, hld, CKD III, GERD presented with presyncope. patient was playing bingo, she reports no recent change in diabetic meds (metformin, novolog), ate usual amount (half sandwhich for lunch), then went to bingo and started feeling off . difficulty recalling exactly what happened, per EMS poc was around 60. patient responded to glucose. now feels back to normal. in ED UA noted to be positive with pyuria and bacturia amd nitrite. 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 Hypertension Dyslipidemia CKD (chronic kidney disease) stage 3, GFR 30-59 ml/min Diabetic nephropathy associated with type 2 diabetes mellitus Diabetes type 2, uncontrolled Family History Father Diabetes Mother Diabetes Surgical History History of repair of rectocele Hx of hysterectomy Social History Household Members: None Alcohol intake: never Patient Tobacco Use Status: Never used Tobacco Smoked in Last 30 Days: No Use of substances other than those prescribed or required for medical reasons: No Advance Directives: No Advance Directives Information Provided: No Do you have a plan to hurt others: No Plan Meds Allergies Allergy/AdvReac Type Severity Reaction Status Date / Time atenolol Allergy Unknown Unknown Verified 01/19/24 20:04 atorvastatin Allergy Unknown Unknown Verified 01/19/24 20:04 diltiazem [Cardizem] Allergy Unknown Unknown Verified 01/19/24 20:04 fluoxetine [Prozac] Allergy Unknown Unknown Verified 01/19/24 20:04 gabapentin [Neurontin] Allergy Unknown Unknown Verified 01/19/24 20:04 loratadine Allergy Unknown Unknown Verified 01/19/24 20:04 No Known Drug Allergies Allergy Unknown NONE Unverified 02/28/20 16:34 [NO KNOWN DRUG ALLERGIES] simvastatin [Zocor] Allergy Unknown Unknown Verified 01/19/24 20:04 zolpidem [Ambien] Allergy Unknown Unknown Verified 01/19/24 20:04 Elavil Allergy Unknown Unknown Uncoded 01/19/24 20:01 Home Medications ?Medication ?Instructions ?Recorded ?Confirmed ?Last Taken ?Type amlodipine 10 mg tablet 10 mg PO DAILY 03/26/20 12/02/21 Unknown History aspirin 81 mg tablet,delayed 81 mg PO DAILY 03/26/20 12/02/21 Unknown History release (Adult Aspirin Regimen) furosemide 20 mg tablet 20 mg PO DAILY 03/26/20 08/24/21 Unknown History metoprolol tartrate 25 mg tablet 25 mg PO BID 03/26/20 12/02/21 Unknown History uuxqkxym-hko-oganq acid 0.4 1 tab PO DAILY 03/26/20 12/02/21 Unknown History mg-lycopene 300 mcg-lutein 250 mcg tablet (Centrum Silver) pravastatin 10 mg tablet 10 mg PO DAILY 03/26/20 12/02/21 Unknown History sertraline 50 mg tablet 25 mg PO BEDTIME 07/15/20 02/23/21 Unknown History magnesium 250 mg tablet 250 mg PO DAILY 02/23/21 02/23/21 Unknown History blood sugar diagnostic (FreeStyle #10 ea 12/02/21 12/02/21 Unknown History Lite Strips) pantoprazole 40 mg tablet,delayed 40 mg PO DAILY 12/02/21 12/02/21 Unknown History release Physical Exam 2 Vital Signs and Narrative: Vital Signs: Last Vital Signs Temp 98.0 F 01/20/24 00:50 Pulse 52 01/20/24 00:50 Resp 19 01/20/24 00:50 BP 150/67 H 01/20/24 00:50 Pulse Ox 97 01/20/24 00:50 O2 Del Method Room Air 01/20/24 00:50 BMI result Body Mass Index 23.4 General: AO X 3, no acute distress Resp: CTA bilateral, no accessory muscles used CVS: S1,S2,RRR GI: soft, non tender, non distended Neuro: motor grossly intact, alert Psych: appropriate affect, appropriate insight Results Labs 01/19/24 21:00 01/19/24 21:00 Labs: Laboratory Results - last 24 hr 0801/19/24 01/19/24 19:39 21:00 22:31 MCV 93.8 MCH 32.0 MCHC 34.1 RDW 13.5 Plt Count 199 MPV 10.3 Immature Gran % (Auto) 0.4 Neut % (Auto) 75.7 H Lymph % (Auto) 13.3 L [place] % (Auto) 9.0 Eos % (Auto) 1.1 Baso % (Auto) 0.5 Lymph # (Auto) 1.1 L [place] # (Auto) 0.7 Eos # (Auto) 0.1 Baso # (Auto) 0.0 Abs Immat Gran (auto) 0.03 Absolute Neuts (auto) 6.1 Absolute Nucleated RBC 0.000 Nucleated RBC % (auto) 0.0 Anion Gap 13 Estim Creat Clear Calc 19.5 Estimated GFR 35 POC Glucose 127 H 99 Random Glucose 98 Calcium 9.6 Total Bilirubin 0.3 AST 23 ALT 16 Alkaline Phosphatase 94 Troponin I High Sens Total Protein 7.5 Albumin 4.7 Urine Color Urine Appearance Urine pH Ur Specific [place] Urine Protein Urine Glucose (UA) Urine Ketones Urine Blood Urine Nitrite Ur Leukocyte Esterase Urine RBC Urine WBC Ur Squamous Epith Cells Urine Bacteria Hyaline Casts 01/19/24 01/19/24 22:46 22:55 MCV MCH MCHC RDW Plt Count MPV Immature Gran % (Auto) Neut % (Auto) Lymph % (Auto) [place] % (Auto) Eos % (Auto) Baso % (Auto) Lymph # (Auto) [place] # (Auto) Eos # (Auto) Baso # (Auto) Abs Immat Gran (auto) Absolute Neuts (auto) Absolute Nucleated RBC Nucleated RBC % (auto) Anion Gap Estim Creat Clear Calc Estimated GFR POC Glucose Random Glucose Calcium Total Bilirubin AST ALT Alkaline Phosphatase Troponin I High Sens < 2.7 Total Protein Albumin Urine Color Yellow Urine Appearance Clear Urine pH 7.5 Ur Specific [place] 1.010 Urine Protein Negative Urine Glucose (UA) Negative Urine Ketones Negative Urine Blood Negative Urine Nitrite Positive H Ur Leukocyte Esterase Moderate (2+) H Urine RBC 0-2 Urine WBC 6-10 H Ur Squamous Epith Cells 0-2 Urine Bacteria 4+ Hyaline Casts 0-2 Imaging Radiologist's Impressions: Impressions Chest X-Ray 01/19/24 20:39 IMPRESSION: No evidence of acute disease Assessment and Plan (1) UTI (urinary tract infection): Status: Acute (2) Hypoglycemia: Status: Acute Plan 88F PMH DM, htn, mood disorder, hld, CKD III, GERD presented with presyncope acute metabolic encephalopathy due to DM with hypoglycemia monitor on sliding scale pyuria, bacturia asymptomatic, but will empirically treat with rocephin, follow up cutlure htn amldopine, lopressor hld normally on pravastatin, doesnt tolerate lipitor ckd III stable mood disorder sertraline gerd ppi dvt prophylaxis - lovenox dnr/dni Quality Stroke Does the patient have a stroke diagnosis?: No VTE Prior VTE?: No VTE Risk Level:: Medical - moderate - high VTE Device Contraindication: Treatment Not Indicated VTE Drug Contraindication: N/A - Med Ordered
--- NOTE | 2024-01-20 01:40 | PC.NURSE ---
pt ambulated with this RN to and from bathroom with a steady gait
[2024-01-20 07:54] LABS: Glucose, Whole Blood 161 mg/dL (60-115)
[2024-01-20] MEDS: Insulin Lispro 100 UNIT/ML 3 ML VIAL SUBCUT ×3 (08:07→20:40)
[2024-01-20] MEDS: Metoprolol Tartrate 25 MG TABLET PO ×2 (08:08→20:41)
[2024-01-20] MEDS: amLODIPine Besylate 10 MG TABLET PO (08:09)
[2024-01-20] MEDS: Aspirin Enteric Coated 81 MG TABLET.DR PO (08:09)
[2024-01-20] MEDS: Enoxaparin Sodium 30 MG/0.3 ML SYRINGE SUBCUT (08:10)
[2024-01-20] MEDS: 0.9 % Sodium Chloride Flush 3 ML SYRINGE IVFLUSH ×3 (08:11→20:42)
--- NOTE | 2024-01-20 08:59 | PC.NURSE ---
Pt alert and oriented, breathing even and unlabored, skin warm and dry. Denies any pain or complaints at this time. VSS, ate her breakfast and took morning meds with no issues.
--- NOTE | 2024-01-20 09:21 | P.PNIM_ITS ---
Subjective Subjective Date of Service: 01/20/24 Interval History: f/u metabolic encephalopathy d/t uti, hypoglycemia she is less confused, hypoglycemia is resolved. Physical Exam 2 Vital Signs: Vital Signs: Last Vital Signs Temp 98.1 F 01/20/24 05:59 Pulse 68 01/20/24 08:08 Resp 12 01/20/24 05:59 BP 142/65 H 01/20/24 08:09 Pulse Ox 97 01/20/24 05:59 O2 Del Method Room Air 01/20/24 05:59 BMI result Body Mass Index 23.4 General: AO X 3, no acute distress Resp: CTA bilateral CVS: S1,S2,RRR GI: +BS, NT, no distention Skin: No rash Neuro: motor grossly intact Psych: appropriate affect Objective Data Active Medications Acetaminophen (Acetaminophen 325 Mg Tablet) 650 mg PO Q6H PRN PRN Reason: Pain, Mild (Pain Scale 1-3), fever or headache Amlodipine Besylate (Amlodipine Besylate 10 Mg Tablet) 10 mg PO DAILY [facility]; Protocol Last Admin: 01/20/24 08:09 Dose: 10 mg Documented By: JACQUI Aspirin (Aspirin Enteric Coated 81 Mg Tablet.) 81 mg PO DAILY [facility] Last Admin: 01/20/24 08:09 Dose: 81 mg Documented By: JACQUI Calcium Carbonate (Calcium Carbonate 750 Mg Tab.Chew) 750 mg PO Q4H PRN PRN Reason: Heartburn Enoxaparin Sodium (Enoxaparin Sodium 30 Mg/0.3 Ml Syringe) 30 mg SUBCUT Q24H [facility] Last Admin: 01/20/24 08:10 Dose: 30 mg Documented By: JACQUI Glucose (Glucose Gel 15 Gm Gel..Gram.) 15 gm PO Q15M PRN; Protocol PRN Reason: per Hypoglycemia Standing Ord. Dextrose (D10) 250 mls @ 750 mls/hr IV Q15M PRN; Protocol PRN Reason: per Hypoglycemia Standing Ord. Ceftriaxone Sodium 1 gm/ (Sodium Chloride) 50 mls @ 100 mls/hr IV Q24H [facility] Insulin Human Lispro (Insulin Lispro 100 Unit/Ml 3 Ml Vial) 0 unit SUBCUT QIDACHS [facility]; Protocol Last Admin: 01/20/24 08:07 Dose: 2 unit Documented By: JACQUI Magnesium Hydroxide (Milk Of Magnesia 30 Ml Oral.Susp) 30 ml PO DAILY PRN PRN Reason: Constipation Melatonin (Melatonin 3 Mg Tablet) 6 mg PO BEDTIME PRN PRN Reason: Insomnia Metoprolol Tartrate (Metoprolol Tartrate 25 Mg Tablet) 25 mg PO BID [facility]; Protocol Last Admin: 01/20/24 08:08 Dose: 25 mg Documented By: JACQUI Omeprazole (Omeprazole 40 Mg Capsule.Dr) 40 mg PO DAILY@0630 [facility] Last Admin: 01/20/24 05:48 Dose: Not Given Documented By: SP Non-Admin Reason: Patient Refused Sertraline HCl (Sertraline Hcl 25 Mg Tablet) 25 mg PO BEDTIME [facility] Sodium Chloride (0.9 % Sodium Chloride Flush 3 Ml Syringe) 3 ml IVFLUSH QSHIFT [facility] Last Admin: 01/20/24 08:11 Dose: 3 ml Documented By: JACQUI Labs 01/19/24 21:00 01/19/24 21:00 Labs: Laboratory Results - last 24 hr 01/19/24 01/19/24 01/19/24 19:39 21:00 22:31 MCV 93.8 MCH 32.0 MCHC 34.1 RDW 13.5 Plt Count 199 MPV 10.3 Immature Gran % (Auto) 0.4 Neut % (Auto) 75.7 H Lymph % (Auto) 13.3 L [place] % (Auto) 9.0 Eos % (Auto) 1.1 Baso % (Auto) 0.5 Lymph # (Auto) 1.1 L [place] # (Auto) 0.7 Eos # (Auto) 0.1 Baso # (Auto) 0.0 Abs Immat Gran (auto) 0.03 Absolute Neuts (auto) 6.1 Absolute Nucleated RBC 0.000 Nucleated RBC % (auto) 0.0 Anion Gap 13 Estim Creat Clear Calc 19.5 Estimated GFR 35 POC Glucose 127 H 99 Random Glucose 98 Calcium 9.6 Total Bilirubin 0.3 AST 23 ALT 16 Alkaline Phosphatase 94 Troponin I High Sens Total Protein 7.5 Albumin 4.7 Urine Color Urine Appearance Urine pH Ur Specific Kiln Urine Protein Urine Glucose (UA) Urine Ketones Urine Blood Urine Nitrite Ur Leukocyte Esterase Urine RBC Urine WBC Ur Squamous Epith Cells Urine Bacteria Hyaline Casts 01/19/24 01/19/24 01/20/24 22:46 22:55 07:49 MCV MCH MCHC RDW Plt Count MPV Immature Gran % (Auto) Neut % (Auto) Lymph % (Auto) [place] % (Auto) Eos % (Auto) Baso % (Auto) Lymph # (Auto) [place] # (Auto) Eos # (Auto) Baso # (Auto) Abs Immat Gran (auto) Absolute Neuts (auto) Absolute Nucleated RBC Nucleated RBC % (auto) Anion Gap Estim Creat Clear Calc Estimated GFR POC Glucose 161 H Random Glucose Calcium Total Bilirubin AST ALT Alkaline Phosphatase Troponin I High Sens < 2.7 Total Protein Albumin Urine Color Yellow Urine Appearance Clear Urine pH 7.5 Ur Specific Kiln 1.010 Urine Protein Negative Urine Glucose (UA) Negative Urine Ketones Negative Urine Blood Negative Urine Nitrite Positive H Ur Leukocyte Esterase Moderate (2+) H Urine RBC 0-2 Urine WBC 6-10 H Ur Squamous Epith Cells 0-2 Urine Bacteria 4+ Hyaline Casts 0-2 Assessment and Plan (1) UTI (urinary tract infection): Status: Acute (2) Hypoglycemia: Status: Acute (3) DM2 (diabetes mellitus, type 2): Status: Acute Plan 88F PMH DM, htn, mood disorder, hld, CKD III, GERD presented with presyncope acute metabolic encephalopathy due to DM with hypoglycemia monitor on sliding scale pyuria, bacturia asymptomatic, but will empirically treat with rocephin, follow up cutlure htn amldopine, lopressor hld normally on pravastatin, doesnt tolerate lipitor ckd III stable dm--hold 70/30 24 bid, for now SSI, check A1C mood disorder sertraline gerd ppi dvt prophylaxis - lovenox dnr/dni need for inpt; metabolic encephalopathy d/t uti, and low sugar and needs close monitoring Quality Stroke Does the patient have a stroke diagnosis?: No VTE Prior VTE?: No VTE Risk Level:: Medical - moderate - high VTE Device Contraindication: Treatment Not Indicated VTE Drug Contraindication: N/A - Med Ordered
--- NOTE | 2024-01-20 09:41 | PHA.MEDREC ---
Addendum entered by Mayur Victoria RPh 01/20/24 10:18: MED REC DOUBLE CHECKED BY [facility] Original Note: Pharmacy Consult ? Medication Reconciliation Pharmacy has completed the medication reconciliation. Confirmed medications with patient. Patient confirmed her Novolog insulin that she takes 24 units BID. she stated she only took one dose yesterday but never could take the other one since going through her episode last night.
[2024-01-20] MEDS: Furosemide 20 MG TABLET PO (11:28)
[2024-01-20 11:40] LABS: Glucose, Whole Blood 192 mg/dL (60-115)
[2024-01-20 12:11] LABS: Estimated Average Glucose 157 mg/dL; Hemoglobin A1c % 7.1 % (<6.0)
[2024-01-20 16:49] LABS: Glucose, Whole Blood 131 mg/dL (60-115)
[2024-01-20 19:35] LABS: Glucose, Whole Blood 192 mg/dL (60-115)
[2024-01-20] MEDS: Pravastatin Sodium 10 MG TABLET PO (20:41)
[2024-01-21 00:38] VITALS: BMI 23.8
[2024-01-21 03:30] VITALS: BP 152/63; PULSE 50; RESP 16; TEMP 36; O2SAT 93
[2024-01-21] MEDS: Omeprazole 40 MG CAPSULE.DR PO (06:30)
[2024-01-21 07:00] LABS: Hematocrit 34.5 % (37.0-47.0); Hemoglobin 11.9 g/dl (12.0-16.0); Mean Corpuscular HGB Conc 34.5 g/dl (31.0-35.0); Mean Corpuscular Hemoglobin 32.4 pg (27.0-33.0); Mean Platelet Volume 10.9 fL (9.4-12.3); Platelet Count 197 X10*3/uL (160-400); Red Blood Count 3.67 X10*6/uL (4.20-5.50); Red Cell Distribution Width 13.7 % (11.0-16.0); White Blood Count 6.2 X10*3/uL (4.8-10.8)
[2024-01-21 07:04] VITALS: BP 147/66; PULSE 51; RESP 18; TEMP 36.1; O2SAT 96
[2024-01-21 07:24] LABS: Anion Gap 12 (12-20); Blood Urea Nitrogen 29 mg/dL (9-16); Calcium 9.5 mg/dL (8.4-10.2); Carbon Dioxide 25 mmol/L (22-29); Chloride 106 mmol/L (96-108); Creatinine Clr Calc Pharmacy 21.8; Estimated Glomerular Filt Rate 36; Glucose Fasting 185 mg/dL (60-99); Potassium 4.1 mmol/L (3.3-5.1); Sodium 139 mmol/L (135-145)
[2024-01-21 07:40] LABS: Glucose, Whole Blood 181 mg/dL (60-115)
[2024-01-21] MEDS: Aspirin Enteric Coated 81 MG TABLET.DR PO (07:57)
[2024-01-21] MEDS: amLODIPine Besylate 10 MG TABLET PO (07:57)
[2024-01-21] MEDS: Furosemide 20 MG TABLET PO (07:57)
[2024-01-21] MEDS: Metoprolol Tartrate 25 MG TABLET PO (07:57)
--- NOTE | 2024-01-21 07:57 | PM.DS ---
DS: Providers Provider Date of Service: 01/21/24 Date of admission: 01/20/24 00:59 Primary care physician: Raimundo Tse MD DS: Diagnosis Discharge Diagnosis (1) UTI (urinary tract infection): Status: Acute (2) Hypoglycemia: Status: Acute (3) DM2 (diabetes mellitus, type 2): Status: Acute DS: Summary Hospital Course Hospital Course: Chief Complaint: presyncope 88F PMH DM, htn, mood disorder, hld, CKD III, GERD presented with presyncope. patient was playing [email or web address], she reports no recent change in diabetic meds (metformin, novolog), ate usual amount (half sandwhich for lunch), then went to bingo and started feeling off . difficulty recalling exactly what happened, per EMS poc was around 60. patient responded to glucose. now feels back to normal. in ED UA noted to be positive with pyuria and bacturia amd nitrite. Hospital course: Patient presented with near syncope and found to have metabolic encephalopathy due hypoglycemia and Pyuria. There has not been further hypoglycemia She takes insulin 70/30 24 units BID, reducing to 12 at night and 20 in the morning and to follow with PCP hemoglobin A1C is 7. Her encephalopathy has resolved. As for Pyuria she is being treated for presumed UTI. culture is negative. monitor on sliding scale Time Attestation Discharge Coordination Time (in mins): 35 Quality: Safe Use of Opioids Does Pt have an Active Cancer Diagnosis on the Problem List?: No Quality: Stroke Does the patient have a stroke diagnosis?: No Physical Exam Vital Signs: Vital Signs: Last Vital Signs Temp 97.0 F 01/21/24 07:04 Pulse 51 01/21/24 07:04 Resp 18 01/21/24 07:04 BP 147/66 H 01/21/24 07:04 Pulse Ox 96 01/21/24 07:04 O2 Del Method Room Air 01/21/24 07:04 BMI result Body Mass Index 23.8 General: AO X 3, no acute distress Resp: CTA bilateral CVS: S1,S2,RRR GI: +BS, NT, no distention Skin: No rash Neuro: motor grossly intact Psych: appropriate affect DS: Data Data Completed and Pending Labs on day of discharge: Laboratory Results - last 24 hr 01/19/24 01/20/24 01/20/24 21:00 11:14 16:01 WBC RBC Hgb Hct MCV MCH MCHC RDW Plt Count MPV Absolute Nucleated RBC Nucleated RBC % (auto) Sodium Potassium Chloride Carbon Dioxide Anion Gap BUN Creatinine Estim Creat Clear Calc Estimated GFR POC Glucose 192 H 131 H Fasting Glucose Estimat Average Glucose 157 Hemoglobin A1c % 7.1 H Calcium 01/20/24 01/21/24 01/21/24 19:28 05:20 07:12 WBC 6.2 RBC 3.67 L Hgb 11.9 L Hct 34.5 L MCV 94.0 MCH 32.4 MCHC 34.5 RDW 13.7 Plt Count 197 MPV 10.9 Absolute Nucleated RBC 0.000 Nucleated RBC % (auto) 0.0 Sodium 139 Potassium 4.1 Chloride 106 Carbon Dioxide 25 Anion Gap 12 BUN 29 H Creatinine 1.39 Estim Creat Clear Calc 21.8 Estimated GFR 36 POC Glucose 192 H 181 H Fasting Glucose 185 H Estimat Average Glucose Hemoglobin A1c % Calcium 9.5 Discharge Plan Discharge Anticipated Discharge Date/Time: 01/21/24 08:26 Patient Disposition: Home, Self-Care Discharge Diagnosis: UTI, hypoglycemia and metabolic encephalopathy Referrals: Raimundo Tse MD [Primary Care Provider] - 1 Week Discharge Medications: New cefuroxime axetil 250 mg tablet 250 mg PO BID Qty: 4 0RF Continued sertraline 50 mg tablet 25 mg PO DAILY metoprolol tartrate 25 mg tablet 25 mg PO BID pravastatin 10 mg tablet 10 mg PO BEDTIME amlodipine 10 mg tablet 10 mg PO DAILY aspirin [Adult Aspirin Regimen] 81 mg tablet,delayed release (DR/EC) 81 mg PO DAILY Centrum Silver 0.4-300-250 mg-mcg-mcg tablet 1 tab PO DAILY furosemide 20 mg tablet 20 mg PO DAILY (DME) FreeStyle Lite Strips Strip See Rx Instructions Not Applicable TID Qty: 10 Rx Instructions: As directed (DME) pen needle, diabetic [BD Sheila 2nd Gen Pen Needle] 32 gauge x 5/32 needle See Rx Instructions .MEDSUPPLY Qty: 200 4RF Rx Instructions: Twice a day Changed insulin asp prt-insulin aspart [Novolog Mix 70-30FlexPen U-100] 100 unit/mL (70-30) insulin pen See Rx Instructions .ROUTE .COMPLEX 30 Days Qty: 30 6RF Rx Instructions: Take 24 units in the morning Take 14 Discharge Orders: Discharge Order (Routine); Ordered 01/21/24 Ordered By: Lito Edwards Diet: Advance to usual diet Activity on Discharge: As tolerated Stand Alone Forms: Patient Portal Discharge page Print Language: Armenian Care Plan Goals: Prevent complications of hypoglycemia Health Concerns: metabolic encephalopathy UTI hypoglycemia Plan of Treatment: take cefuroxime 250 mg twice daily for 2 more days your insulin dose has been reduced to 14 at night, and continue 24 units in the morning. Check your blood sugar level before meals and at bedtime and if you are having symptoms of low blood sugar check and if it is low take sugar tablet or drink juce and recheck and if it is still low mayo 911 Assessment: see Discharge Date/Time: 01/21/24 14:00
[2024-01-21] MEDS: Multivitamin TABLET 1 TAB PO (07:58)
[2024-01-21] MEDS: Insulin Lispro 100 UNIT/ML 3 ML VIAL SUBCUT ×3 (07:58→12:36)
[2024-01-21] MEDS: Enoxaparin Sodium 30 MG/0.3 ML SYRINGE SUBCUT (08:04)
[2024-01-21] MEDS: 0.9 % Sodium Chloride Flush 3 ML SYRINGE IVFLUSH (08:05)
[2024-01-21 11:34] LABS: Glucose, Whole Blood 317 mg/dL (60-115)
[2024-01-21 12:30] LABS: Glucose, Whole Blood 303 mg/dL (60-115)
--- NOTE | 2024-01-21 13:19 | MHC.CM.PN ---
PT REPORTS SHE LIVES ALONE AND IS INDEPENDENT WITH CARE SHE HAS BOTH A WALKER AND A ROLLATOR. BUT SAYS SHE DOES NOT USE ANY DME AT [facility] PT SAYS SHE HAS A HCP, COPY REQUESTED PCP: SHAHLA LORENZO OBSERVATION NOTICE DELIVERED DCP: PT WILL DC HOME TODAY WITH NO SERVICES DAUGHTER TO TRANSPORT AT PTS REQUEST, CM CALLED HER DAUGHTER, PRINCE [phone] AND INFORMED HER OF PENDING DC SHE INDICATED SHE WOULD ARRANGE PTS TRANSPORT
[2024-01-21 13:38] LABS: Glucose, Whole Blood 122 mg/dL (60-115)
== END 2024-01-21 14:00 | disposition home or self-care (01) ==
LOC: HO.ED 01-20 00:47 → HO.EDOVER 01-20 01:08 → HO.S3 01-20 08:34
PROVIDERS: Admitting Provider Internal Medicine; Emergency Provider Student in an Organized Health Care Education/Training Program; PCP Family Medicine; Visit Provider Internal Medicine
DX: N39.0 Urinary tract infection, site not specified (principal); E11.649 Type 2 diabetes mellitus with hypoglycemia without coma; G93.41 Metabolic encephalopathy; E11.22 Type 2 diabetes mellitus with diabetic chronic kidney disease; I12.9 Hypertensive chronic kidney disease with stage 1 through stage 4 chronic kidney disease, or unspecified chronic kidney disease; N18.30 Chronic kidney disease, stage 3 unspecified; K21.9 Gastro-esophageal reflux disease without esophagitis; E78.5 Hyperlipidemia, unspecified; Z79.4 Long term (current) use of insulin; Z79.899 Other long term (current) drug therapy
CPT/HCPCS: 36415; 71046; 80048; 80053; 81001; 81003; 82947; 83036; 84484; 85025; 85027; 87086; 87088; 87186; 93005; 96365; 96366; 96372; 99221; 99285; J0696; J1650

== ENCOUNTER → 2024-01-19 20:06 | Outpatient (BNV) | payer MEDICARE, SELFPAY | PROVIDERS: Admitting Provider Internal Medicine; Emergency Provider Student in an Organized Health Care Education/Training Program; PCP Family Medicine; Visit Provider Internal Medicine Cardiovascular Disease | DX: R00.1 Bradycardia, unspecified (principal); I45.10 Unspecified right bundle-branch block; R94.31 Abnormal electrocardiogram [ECG] [EKG] | CPT/HCPCS: 93010 ==

== ENCOUNTER → 2024-01-19 20:29 | Outpatient (BNV) | payer MEDICARE, SELFPAY | PROVIDERS: Emergency Provider Student in an Organized Health Care Education/Training Program; PCP Family Medicine; Visit Provider Internal Medicine | DX: N39.0 Urinary tract infection, site not specified (principal); E16.2 Hypoglycemia, unspecified; E11.21 Type 2 diabetes mellitus with diabetic nephropathy; Z79.4 Long term (current) use of insulin | CPT/HCPCS: 99222; 99239; 99499 ==

== ENCOUNTER 2024-03-07 12:36 | Outpatient (REF) | payer SELFPAY ==
--- NOTE | 2024-03-07 13:32 | MHC.AU.HA3 ---
Hearing Instrument Follow-Up- Binaural Date of Visit: 03/07/24 Right Ear: Laci, Model, Color, Serial Number: Ramón Martines [id number] SN [id number] Clerical Adviser Repair Warranty: 09/30/2023 Clerical Adviser Loss and Damage Warranty: 09/30/2023 [facility] Service Plan: 09/30/2023 Battery Size: 13 Rubber Insulator/Slim Tube: #2 Power Earmold/Dome/CShell/SlimTip: Type of Wax Guard: CeruStop Dispensed By: [facility] Date of Fittin07/30/2020 Left Ear: Laci, Model, Color, Serial Number: Ramón Martines [id number] SN [id number] Clerical Adviser Repair Warranty: 09/30/2023 Clerical Adviser Loss and Damage Warranty: 09/30/2023 [facility] Service Plan: 09/30/2023 Battery Size: 13 Rubber Insulator/Slim Tube: #2 Power Earmold/Dome/CShell/SlimTip: Type of Wax Guard: CeruStop Dispensed By: [facility] Date of Fittin07/30/2020 Follow-Up Summary: Martina reports left aid has not been working for some time. Cleaned and checked aids, both wax guards clogged. Replaced wax guards. Ran through dehumidifier. Cleaned ruddy ports. Listening check positive right. Left still not working. Replaced geoscience technician. Listening check positive. Recommendations: Recommendations: Hearing instrument follow-up or maintenance as needed. Diagnosis Code(s): Primary Diagnosis: H90.3 Bilateral Sensorineural Hearing Loss Signature: Provider: Hayden Guerra, [facility]
== END 2024-03-07 12:37 | disposition home or self-care (01) ==
LOC: HO.HAP 12:36
PROVIDERS: Visit Provider Family Medicine
DX: Z46.1 Encounter for fitting and adjustment of hearing aid (principal); H90.3 Sensorineural hearing loss, bilateral
CPT/HCPCS: V5299

== ENCOUNTER 2024-04-05 13:47 | Outpatient (REF) | payer SELFPAY ==
--- NOTE | 2024-04-05 16:45 | MHC.AU.HA3 ---
Hearing Instrument Follow-Up- Binaural Date of Visit: 04/05/24 Right Ear: Laci, Model, Color, Serial Number: Ramón Martines [id number] SN: [id number] Color: Sand Beige Fund Accountant Repair Warranty: 09/30/2023 Fund Accountant Loss and Damage Warranty: 09/30/2023 [facility] Service Plan: 09/30/2023 Battery Size: 13 Ring Striker/Slim Tube: 2P Earmold/Dome/CShell/SlimTip:Medium power dome (no retention tail) Type of Wax Guard: CeruStop Dispensed By: [facility] Date of Fittin07/30/2020 Left Ear: Laci, Model, Color, Serial Number: Ramón Martines [id number] SN: [id number] Color: Sand Beige Fund Accountant Repair Warranty: 09/30/2023 Fund Accountant Loss and Damage Warranty: 09/30/2023 [facility] Service Plan: 09/30/2023 Battery Size: 13 Ring Striker/Slim Tube: 2P Earmold/Dome/CShell/SlimTip: Medium power dome (no retention tail) Type of Wax Guard: CeruStop Dispensed By: [facility] Date of Fittin07/30/2020 Follow-Up Summary: Right WALTON not working. Upon inspection, needed transportation inspector replacement. Cleaned both HAs. Replaced right transportation inspector. Martina upset that same issue just occurred with left WALTON, questioning if previous edger automatic just switched the parts. Ensured Martina this is not possible as there are specific right and left receivers, likely just unfortunate timing. Explained that receivers need to be replaced at least 1-2 times within the 5-7 year lifespan of a hearing aid. She was frustrated that she has to pay again, reportedly never charged for anything in the past. Reviewed Hearing Aid Sales Contract, showing Martina buttonhole maker's warranty information, etc. Explained that this is a different part that needed to be replaced (as opposed to the previous left transportation inspector). Martina was not prepared to pay another $150.00 for right-sided transportation inspector replacement. Advised that she could be billed; however, on her way out she noted I'm just going to ignore it. Recommendations: Hearing instrument follow-up or maintenance as needed. Please contact our clinic with any questions or concerns. Diagnosis Code(s): Primary Diagnosis: H90.3 Bilateral Sensorineural Hearing Loss Signature: Provider: Hayden Payne, [facility]
== END 2024-04-05 13:48 | disposition home or self-care (01) ==
LOC: HO.HAP 13:47
PROVIDERS: Visit Provider Family Medicine
DX: Z46.1 Encounter for fitting and adjustment of hearing aid (principal); H90.3 Sensorineural hearing loss, bilateral
CPT/HCPCS: V5299

== ENCOUNTER 2024-11-29 11:50 | Outpatient (REF) | payer MEDICARE, SELFPAY ==
[2024-11-29 13:07] LABS: MANUAL DIFF FLAG NO
[2024-11-29 13:10] LABS: Basophils Absolute Auto 0.1 X10*3/uL (0.0-0.2); Basophils Percent Auto 1.1 % (0-2); Eosinophils Absolute Auto 0.1 X10*3/uL (0.0-0.4); Eosinophils Percent Auto 1.8 % (0-4); Hematocrit 37.4 % (37.0-47.0); Hemoglobin 12.3 g/dl (12.0-16.0); Imm Gran Abs Auto 0.01 X10*3/uL (0.00-0.03); Imm Gran Pct Auto 0.2 % (0.0-0.4); Lymphocytes Absolute Auto 1.8 X10*3/uL (1.2-4.9); Lymphocytes Percent Auto 26.4 % (20-40); Mean Corpuscular HGB Conc 32.9 g/dl (31.0-35.0); Mean Corpuscular Hemoglobin 30.7 pg (27.0-33.0); Mean Corpuscular Volume 93.3 fL (80.0-98.0); Mean Platelet Volume 10.8 fL (9.4-12.3); Monocytes Absolute Auto 0.8 X10*3/uL (0.1-1.2); Monocytes Percent Auto 12.1 % (2-11); Neutrophils Absolute Auto 3.9 x10*3/uL (2.0-8.3); Neutrophils Percent Auto 58.4 % (45-73); Platelet Count 215 X10*3/uL (160-400); Red Blood Count 4.01 X10*6/uL (4.20-5.50); Red Cell Distribution Width 13.2 % (11.0-16.0); White Blood Count 6.6 X10*3/uL (4.8-10.8)
--- OUTSIDE RECORDS SUMMARY | 2024-11-29 13:16 | XMS_ITS | Patient Health Record ---
Author Organization [facility] Address [address] [facility] [address] [facility] [place] [address] Care Team Providers Care Client Relations Associate Name Role Phone Dedrick HOLLOWAY, Raimundo Primary Care Provider Unavailab safia BunchDoris Unavailable [phone] Allergies Allergen (clinical drug ingredient) Drug/Non Drug Allergy documented on EMR Reaction Allergy Type Onset Date Status zolpidem Ambien Unknown Drug Allergy Active atenolol Atenolol Unknown Drug Allergy Active atorvastatin Atorvastatin Calcium Unknown Drug Allergy Active diltiazem Cardizem Unknown Drug Allergy Active atorvastatin Lipitor Unknown Drug Allergy Acti ve loratadine Loratadine Unknown Drug Allergy Activ e gabapentin Neurontin Unknown Drug Allergy Active fluoxetine Prozac Unknown Drug Allergy Active simvastatin Zocor Unknown Drug Allergy Activ e Dust Mite Mixed Allergen Ext Unknown Drug Allergy Active Elavil Unknown Drug Allergy Active corticosteroid and/or corticosteroid derivative (FN) Corticosteroids blood sugar Drug Allergy Active Results Component Value Reference Range Notes HEMOGLOBIN A1C (GLYCOHEMOGLO BIN) Reviewed date:09/10/2024 04:00:25 PM Interpretation: Performing Lab: Notes/Report: HEMOGLOBIN A1C % (HH) 8.3 Reason For Referral No Information Medications Medication SIG (Take, Route, Frequency, Duration) Notes Start Date End Date Status Lisinopril 40mg Not- Taking hydroCHLOROthiazide 12.5 MG Orally Not-Taking Extra Depth Orthopedic Shoes (1 Pair) with Customized Heat Molded Multidensity Innersoles (3 Pair) as directed Dx: NIDDM/Polyneuropathy (E11.42), Hammertoe Foot Deformity (M20.41,M20.42), Preulcerative Skin Lesion(s) (L85.1 09/10/2024 Active Gabapentin 100 MG Orally Once a day Not-Taking Omeprazole 20 MG Orally Once a day Not-Taking Lantus Active metFORMIN HCl 500 MG Orally Twice a day Not-Taking Cefuroxime Axetil No t-Taking Extra Depth Orthopedic Shoes (1 Pair) with Customized Heat Molded Multidensity Innersoles (3 Pair) as directed Dx: NIDDM/Polyneuropathy (E11.42), Hammertoe Foot Deformity (M20.41,M20.42), Preulcerative Skin Lesion(s) (L85.1 06/23/2017 Not-Taking zzzCompression Stockings 20-30mm Hg . . . for . Not-Taking Pantoprazole Sodium Not-Taking Extra Depth Orthopedic Shoes (1 Pair) with Customized Heat Molded Multidensity Innersoles (3 Pair) as directed Dx: NIDDM/Polyneuropathy (E11.42), Hammertoe Foot Deformity (M20.41,M20.42), Preulcerative Skin Lesion(s) (L85.1 06/22/2018 Not-Taking Tresiba FlexTouch 100 UNIT/ML Subcutaneous Not-Taking Sertraline HCl 25 MG as directed Orally Active MiraLax Active Aspirin 81 MG 1 tablet Orally Once a day Active Extra Depth Orthopedic Shoes (1 Pair) with Customized Heat Molded Multidensity Innersoles (3 Pair) as directed Dx: NIDDM/Polyneuropathy (E11.42), Hammertoe Foot Deformity (M20.41,M20.42), Preulcerative Skin Lesion(s) (L85.1 07/23/2019 Not-Taking NovoLOG Mix 70/30 FlexPen Not-Taking Magnesium 250 MG Orally Once a day Active Pravastatin Sodium 10 MG Orally Once a day Active glipiZIDE Not-Taking Metoprolol Tartrate 25 MG as directed Orally Active Centrum Silver Activ e Furosemide 20 MG as directed Orally Active amLODIPine Besylate 10 MG Orally Active Immunizations Vaccine Route Administration Date Status Comme nts COVID-19 Moderna Vaccine Unknown 10/16/2021 Administered First Dose: 07/24/20 Second Dose: 08/29/2020 3rd: 05/02/21 Influenza Unknown 06/23/2017 Refused Influenza Unknown 03/13/2020 Administered Influenza Unknown 04/13/2021 Administered Influenza Unknown 03/17/2023 Administered Social History Tobacco Use: Social History Observation Description Date Details (start date - stop date) Never Smoker NA - NA Tobacco Use/Smoking Question Answer Notes Are you a: nonsmoker Additional Findings: Tobacco Non-User Current no n-smoker Alcohol Screen Question Answer Notes Did you have a drink containing alcohol in the p ast year? No Points 0 Interpretation Negative Tobacco use other than smoking: Question Answer Notes Are you an other tobacco user? No Problems Problem Type SNOMED Code ICD Code Onset Dates Problem Status W/U Status Risk Notes Problem Acquired hallux valgus (24324597) Hallux valgus (acquired), left foot (M20.12) Active confirmed Problem Pain co-occurrent and due to varicose veins of bilateral legs (8632753679379503 0) Varicose veins of bilateral lower extremities with pain (I83.813) Active confirmed Problem Acquired hallux valgus (63110502) Hallux valgus (acquired), right foot (M20.11) Active confirmed Problem Acquired hammer toe of right foot (9143085583087845 ) Other hammer toe(s) (acquired), right foot (M20.41) Active confirmed Problem Acquired hammer toe of left foot (7555747186095293 ) Other hammer toe(s) (acquired), left foot (M20.42) Active confirmed Problem Polyneuropathy due to type 2 diabetes mellitus (387215424) Type 2 diabetes mellitus with diabetic polyneuropathy (E11.42) Active confirmed Problem Neuropathy (531051929) Neuropathy (G62.9) Active confirmed Problem 15472782 Venous insufficiency (I87.2) Active confirmed Problem Acquired deformity of right foot (8315528555376799 0) PlantarFlexion of metatarsal of right foot (M21.6X1) Active confirmed Vital Signs Blood pressure diastolic 60 mm Hg 09/10/2024 Height 5 ft 2 in in 09/10/2024 Blood pressure systolic 132 mm Hg 09/10/2024 Weight 120 lbs 09/10/2024 BMI 21.95 kg/m2 09/10/2024 Procedures Procedure Date Ordered Date Performed Result Body Sit e 19592-ALZQ SKIN LESIONS, OVER 4 01/16/2024 N/A W8085-AAALNSRI DYSTROPHIC NAILS ANY # 01/16/2024 N/A 90232-WEBG SKIN LESIONS, OVER 4 04/12/2024 N/A Q8926-SRVMQAXH DYSTROPHIC NAILS ANY # 04/12/2024 N/A 52605-PKXP SKIN LESIONS, OVER 4 09/10/2024 N/A R4186-WREPWYRG DYSTROPHIC NAILS ANY # 09/10/2024 N/A Encounters Encounter Location Date Provider Diagnosis [address] [address] 01/16/2024 Doris Bunch Type 2 diabetes mellitus with diabetic polyneuropathy E11.[address] [address] 04/12/2024 Doris Black Type 2 diabetes mellitus with diabetic polyneuropathy E11.[address] [address] 09/10/2024 Doris Black Type 2 diabetes mellitus with diabetic polyneuropathy E11.42 ; Other hammer toe(s) (acquired), right foot M20.41 and Other hammer toe(s) (acquired), left foot M20.[address] [address] 07/11/2024 Doris Black Assessments Encounter Date Diagnosis (ICD Code) Assessment Notes Treatment Notes Treatment Clinical Notes Section Notes 01/16/2024 Type 2 diabetes mellitus with diabetic polyneuropathy (ICD-10 - E11.42) 04/12/2024 Type 2 diabetes mellitus with diabetic polyneuropathy (ICD-10 - E11.42) 09/10/2024 Other hammer toe(s) (acquired), right foot (ICD-10 - M20.41) Patient Educated with: DIABETIC FOOT CARE INSTRUCTIONS. pdf (DIABETIC FOOT CARE INSTRUCTIONS. pdf) 09/10/2024 Type 2 diabetes mellitus with diabetic polyneuropathy (ICD-10 - E11.42) 09/10/2024 Other hammer toe(s) (acquired), left foot (ICD-10 - M20.42) Plan Of Treatment Pending Test Test Name Order Date 91801-Lubpteds Plate 11/30/2021 30623-YDVW SKIN LESIONS, OVER 4 12/01/19 22 05197-YWFZ SKIN LESIONS, OVER 4 09/08/19 22 23579-DIWS SKIN LESIONS, OVER 4 03/02/20 21 27752-DQNN SKIN LESIONS, OVER 4 05/28/20 62316-RYZE SKIN LESIONS, OVER 4 02/04/20 93744-HRCB SKIN LESIONS, OVER 4 05/12/20 67146-UGPM SKIN LESIONS, OVER 4 08/12/19 19724-JXWK SKIN LESIONS, OVER 4 11/18/19 81412-XAYP SKIN LESIONS, OVER 4 02/05/20 86950-RDRF SKIN LESIONS, OVER 4 04/22/20 69403-WAMH SKIN LESIONS, OVER 4 07/12/19 15055-UIBO SKIN LESIONS, OVER 4 10/12/19 62330-ZCHG SKIN LESIONS, OVER 4 01/11/20 27135-CEFL SKIN LESIONS, OVER 4 07/21/19 73551-KLPE SKIN LESIONS, OVER 4 10/03/19 43753-PHHT SKIN LESIONS, OVER 4 01/16/20 15059-LGHJ SKIN LESIONS, OVER 4 04/12/20 60512-WQNQ SKIN LESIONS, OVER 4 09/11/19 69978-UEVO SKIN LESIONS, 2 TO 4 06/23/19 03622-WOOL SKIN LESIONS, 2 TO 4 12/23/19 96214-VVHP SKIN LESIONS, 2 TO 4 06/22/19 67162-GEJM SKIN LESIONS, 2 TO 4 10/13/19 70361-QRQM SKIN LESIONS, 2 TO 4 01/12/20 52566-HBYD SKIN LESIONS, 2 TO 4 04/16/20 08996-EHNF SKIN LESIONS, 2 TO 4 07/23/19 28610-YCAC SKIN LESIONS, 2 TO 4 10/29/19 79505-VHAJ NAIL(S) 10/29/2019 42847-LEVD NAIL(S) 07/23/2019 20155-NKAM NAIL(S) 04/16/2019 02100-PAYB NAIL(S) 01/11/2019 69511-PNBM NAIL(S) 10/12/2018 88056-UYUE NAIL(S) 06/22/2018 77974-JRUK NAIL(S) 12/22/2017 69136-RKAV NAIL(S) 06/23/2017 17870-MPFT NAIL(S) 11/17/2020 29073-VDSA NAIL(S) 08/11/2020 82439-UQSX NAIL(S) 05/12/2020 47233-RZLO NAIL(S) 02/04/2020 35682-PBPX NAIL(S) 05/28/2021 80336-WKEN NAIL(S) 03/02/2021 88378-EJRE NAIL(S) 09/07/2021 07648-WADP NAIL(S) 11/30/2021 33490-TCQL NAIL(S) 01/10/2023 68263-ISLT NAIL(S) 10/11/2022 59285-SEOT NAIL(S) 07/12/2022 46048-AYXE NAIL(S) 04/22/2022 27411-ZNSM NAIL(S) 02/04/2022 I6564-XKAZPAYJ DYSTROPHIC NAILS ANY # L0278-QMDQRNII DYSTROPHIC NAILS ANY # K5590-NOOXYLEI DYSTROPHIC NAILS ANY # S0716-ZZPBJRCE DYSTROPHIC NAILS ANY # F2179-OJWTYANN DYSTROPHIC NAILS ANY # N4657-NPOGDNHM DYSTROPHIC NAILS ANY # Next Appt Details Provider Name:Doris Bunch , 12/19/2024 02:30:00 PM, [address] [facility], [place], [address], Insurance Providers Payer Name Payer Address Payer Phone Subscriber Number Group Number Insured Name Patient Relationship to Insured Coverage Start Date Coverage End Date Medicare National Govt Sv[employer] [address] [place] [address] [id number] Martina Hurst Self - patient is the insured 1 [employer] [address] [place] [address] [id number] Martina Hurst Self - patient is the insured Medical (General) History Medical History History ICD Code Back,Hip,and Knee pain Broken bones CAD (Cholesterol) type II diabetes High blood pressure Chicken pox Transfusions Hyperlipidemia dyslipidemia Cancer Surgical History Surgery Date(Month/Year) hysterectomy 11/1998 cataract surgery 11/2015 eye implant 03/09/17 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
[2024-11-29 13:26] LABS: Alanine Aminotransferase 20 U/L (0-31); Anion Gap 11 (12-20); Aspartate Amino Transferase 27 U/L (5-31); Blood Urea Nitrogen 27 mg/dL (9-16); Carbon Dioxide 33 mmol/L (22-29); Chloride 100 mmol/L (96-108); Estimated Glomerular Filt Rate 38; Potassium 4.1 mmol/L (3.3-5.1); Sodium 140 mmol/L (135-145)
== END 2024-11-29 11:51 | disposition home or self-care (01) ==
LOC: HO.10HDL 11:50
PROVIDERS: Visit Provider Family Medicine
DX: I10 Essential (primary) hypertension (principal); E78.00 Pure hypercholesterolemia, unspecified; R53.83 Other fatigue
CPT/HCPCS: 36415; 80051; 82550; 82565; 84450; 84460; 84520; 85025

== ENCOUNTER 2025-02-22 13:43 | Outpatient (AMB) | payer MEDICARE, SELFPAY ==
--- OUTSIDE RECORDS SUMMARY | 2024-07-19 10:15 | XMS_ITS ---
Author Organization [facility] Address [address] [place] [address] Care Team Providers Care Casket Assembler Name Role Phone Raimundo Tse MD Primary Care Provider UnavailDoris Garcia [phone] Encounters Encounter Location Date Provider Diagnosis [facility] [address] [place] [address] 07/19/2024 Doris Bunch Plan Of Treatment Next Appt Details Provider Name:Doris Bunch , 03/21/2025 02:30:00 PM, [address] [place], [address], Progress Notes * Jay HURSTOB: (89 yo F)Acc No.[id number]:07/19/2024 Progress Note Patient: Martina GALAVIZ Provider: Austen Bunch DPM :1935 A ge:88 Y S ex:Female Date:07/19/2024 Address:[address], [id number] Pcp:Raimundo Tse MD Subjective: * Chief Complaints: * * Medical History: Objective: * Vitals: Assessment: Plan: * Treatment: * Images: * The named appointment provid er may or may not be the originator of this progress note, and it is not deemed complete until electronically signed by the appointment provider. Sign off status: Pending * Provider: Austen Bunch DPSherine Date: 0 07/19/2024 Generated for Arlin lopez/Carlos/Lacey on: 0 02/22/2025 04:37 PM EDT
--- NOTE | 2025-02-22 13:45 | A.OFFPC_ITS ---
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 Accompanied by: Daughter Allergies atenolol Allergy (Unknown, Verified 02/22/25 13:46) Unknown atorvastatin Allergy (Unknown, Verified 02/22/25 13:46) Unknown diltiazem (Cardizem) Allergy (Unknown, Verified 02/22/25 13:46) Unknown fluoxetine (Prozac) Allergy (Unknown, Verified 02/22/25 13:46) Unknown gabapentin (Neurontin) Allergy (Unknown, Verified 02/22/25 13:46) Unknown loratadine Allergy (Unknown, Verified 02/22/25 13:46) Unknown simvastatin (Zocor) Allergy (Unknown, Verified 02/22/25 13:46) Unknown zolpidem (Ambien) Allergy (Unknown, Verified 02/22/25 13:46) Unknown Elavil Allergy (Unknown, Uncoded 02/22/25 13:46) Unknown Medication List - Last Reconciled 02/22/25 by AYDIN Mendoza amlodipine 10 mg PO DAILY aspirin (Adult Aspirin Regimen) 81 mg PO DAILY blood sugar diagnostic (FreeStyle Lite Strips) As directed furosemide 20 mg PO DAILY insulin glargine-yfgn 24 units subcut DAILY magnesium oxide 500 mg PO DAILY metoprolol tartrate 25 mg PO BID plnqheqv-jkr-HM-lycopen-lutein 0.4 mg-300 mcg- 250 mcg (Centrum Silver) 1 tab PO DAILY pen needle, diabetic (BD Sheila 2nd Gen Pen Needle) Twice a day pravastatin 10 mg PO BEDTIME sertraline 25 mg PO DAILY Tobacco use date assessed: 02/22/25 Fall risk assessment: No Falls in past year Last assessed Fall Risk: 02/22/25 Dental Screening Dental Screen Date: 02/22/25 Did you have a dental visit in the last 12 months?: No Did you have a dental problem in the last 6 months where you did not have access to dental care?: No Was dental information given to patient?: No (Dentures) HPI HPI Comments History of Present Illness Details 89-year-old female with history of type 2 diabetes with diabetic polyneuropathy, depression, GERD, hypertension, dyslipidemia, CKD stage 3 presenting to the office today for management of chronic conditions and to establish care. Here with daughter, Neli. Prior pt of Dr. Tse, last seen 3 months ago. Type 2 diabetes-last hemoglobin A1c 7.1% 1 year ago. On 24 units Lantus. POC fasting this am 140. can be up to 300 later on. Eye exam is Neuropathy- has purchased dm shoes. Still has pain in the RLE. Hypertension-blood pressure in the office 120/58. On amlodipine 10 mg, metoprolol 25 mg b.i.d.. Also furosemide 20 mg Dyslipidemia-pravastatin 10 mg at bedtime Depression-stable on sertraline 25 mg daily DM nephropathy/CKD stage 3-last GFR 38 Chronic constipation- on miralax Concerns: None ROS: General: No fevers, malaise, unintentional weight loss HEENT: No blurred vision, diplopia. No sore throat, nasal congestion, rhinorrhea, sinus pain, ear pain Cardiovascular: No chest pain, palpitations, or leg edema Respiratory: No shortness of breath, wheezing, cough GI: No abdominal pain, nausea, vomiting, diarrhea, constipation, melena, hematochezia : No dysuria, hematuria, increased urinary frequency, decreased urinary output MSK: No myalgia, back pain Neuro: No headaches, weakness, paresthesias Skin: No rashes or lesions EXAM: Constitutional - Awake and Alert, No apparent distress Eyes - PERRL Cardiovascular - S1S2, RRR, 1+ edema Respiratory - Normal lung expansion, Normal respiratory effort, No respiratory distress, CTA bilaterally Extremities - no calf tenderness bilaterally, no swelling Skin - Warm/Dry Neurological - Alert & oriented x3 Psychological - Appropriate affect PFSH Medical History DM2 (diabetes mellitus, type 2) Diabetic polyneuropathy associated with type 2 diabetes mellitus Depression GERD (gastroesophageal reflux disease) FCI (current) use of insulin Hypertension Dyslipidemia CKD (chronic kidney disease) stage 3, GFR 30-59 ml/min Diabetic nephropathy associated with type 2 diabetes mellitus Diabetes type 2, uncontrolled Surgical History History of repair of rectocele Hx of hysterectomy Family History Father Diabetes Mother Diabetes Social History Household Members: None Housing: Apartment Alcohol intake: never Patient Tobacco Use Status: Never used Tobacco e-Cigarette/Vaping Use: Never Used service: No Current occupational status: retired Cognitive needs: Yes (Walker/cane PRN) Hearing needs: Yes (Bilateral ) Vision needs: Yes (Reading glasses) Questionnaire PHQ-9 Over the last 2 weeks, how often have you been bothered by any of the following problems? 1. Little interest or pleasure in doing things: more than half the days 2. Feeling down, depressed, or hopeless: nearly every day 3. Trouble falling or staying asleep, or sleeping too much: nearly every day 4. Feeling tired or having little energy: nearly every day 5. Poor appetite or overeating: several days 6. Feeling bad about yourself - or that you are a failure or have let yourself or your family down: several days 7. Trouble concentrating on things, such as reading the newspaper or watching television: not at all 8. Moving or speaking so slowly that other people could have noticed. Or the opposite - being so fidgety or restless that you have been moving around a lot more than usual: not at all 9. Thoughts that you would be better off or of hurting yourself in some way: several days Total score: 14 Depression Screening Interpretation: Positive Depression Screening Done: Yes 59472 - PHQ-9 Billing: Yes Source: Developed by Drs. Jonn Franco, Cris Mendenhall, Christiano Dale and colleagues, with an educational myra from [employer]. Thrive Questionnaire Date Thrive assessed: 02/22/25 I am a: Patient What is your living situation today?: I have a steady place to live Within the past 12 months, did the food you bought not last and you didn't have the money to get more?: Never true Within the past 12 months, did you worry whether your food would run out before you got money to buy more?: Never true Do you have trouble paying for medicines?: No Do you have trouble getting transportation to medical appointments?: No Do you have trouble paying your heating and electricity bill?: No Do you have trouble taking care of your child, family member or friend?: No Do you have trouble with day-to-day activities such as bathing, preparing meals, shopping, managing finances, etc.?: No Are you currently unemployed and looking for a job?: No Are you interested in more education?: No Please select the resources that you would like help with: None THRIVE Score: 0 PREM-7 AMB Questionnaire PREM-7 Date PREM - 7 assessed: 02/22/25 Feeling nervous, anxious, or on edge: 1 = Several days Not being able to stop or control worryin = More than half the days Worrying too much about different things: 2 = More than half the days Trouble relaxin = More than half the days Being so restless that it is hard to sit still: 1 = Several days Becoming easily annoyed or irritable: 2 = More than half the days Feeling afraid as if something awful might happen: 2 = More than half the days Total PREM-7 score (0-4 normal; 5-9 mild; 10-14 moderate; 15-21 severe): 12 Source: Developed by Drs. Jonn Franco, Cris Mendenhall, Christiano Dale and colleagues, with an educational myra from [employer]. PREM-7 Assessment Billing PREM-7 Assessment Tool: PREM-7 Assessment 07218 Physical exam (Primary Care) Vital Signs: Last Vital Signs Temp 98.0 F 02/22/25 13:52 Pulse 73 02/22/25 13:52 Resp 16 02/22/25 13:52 BP 120/58 L 02/22/25 13:52 Pulse Ox 97 02/22/25 13:52 Oxygen Delivery Method Room Air 02/22/25 13:52 BMI result Body Mass Index 22.3 Tobacco/Smoking Status: Tobacco use Status Tobacco use date assessed 02/22/25 02/22/25 13:56 Patient Tobacco Use Status Never used Tobacco 02/22/25 13:46 e-Cigarette/Vaping Use Never Used 02/22/25 13:56 PHQ-9: PHQ-9 Score PHQ-9: Total score 14 02/22/25 14:05 Depression Screening Interpretation: Positive Thrive Assessment: Date of Thrive Assessment Date Thrive assessed 02/22/25 02/22/25 13:56 Coding Level of Care Code New Pt Level 4 (38469) Complex EM visit Add On G2211 Diagnoses Diabetic nephropathy associated with type 2 diabetes mellitus E11.21 Dyslipidemia E78.5 Essential hypertension I10 Hypertension type: essential hypertension Depression F32.9 Diabetic polyneuropathy associated with type 2 diabetes mellitus E11.42 Additional Codes PREM-7 Assessment Billing - PREM-7 Assessment Tool: PREM-7 Assessment 87738 ([id number]) PHQ-9 - 86172 - PHQ-9 Billing: Yes ([id number]) Assessment & Plan Assessment & Plan (1) Diabetic nephropathy associated with type 2 diabetes mellitus: Code(s): E11.21 - Type 2 diabetes mellitus with diabetic nephropathy Category: Medical Plan: Previously controlled. Updated hemoglobin A1c ordered. Continue with Lantus 24 units daily (2) Dyslipidemia: Code(s): E78.5 - Hyperlipidemia, unspecified Category: Medical Plan: Lipid panel ordered. Continue pravastatin (3) Hypertension: Code(s): I10 - Essential (primary) hypertension Category: Medical Qualifiers: Hypertension type: essential hypertension Qualified Code(s): I10 - Essential (primary) hypertension Plan: Controlled. Continue amlodipine 10 mg daily and metoprolol 25 mg twice daily (4) Depression: Code(s): F32.9 - Major depressive disorder, single episode, unspecified Category: Medical Plan: Reviewed PHQ-9 and prem 7. Uncontrolled. Would like to Continue sertraline (5) Diabetic polyneuropathy associated with type 2 diabetes mellitus: Code(s): E11.42 - Type 2 diabetes mellitus with diabetic polyneuropathy Category: Medical Plan: Stable. Continue with diabetic shoes. Plan as above Plan Follow-up in the office in 4 months, labs to be completed following visit today. Recommend compression stockings, leg elevation and ongoing use of furosemide for edema Orders: Orders Liver Panel Today E11.21 - Type 2 diabetes mellitus with diabetic nephropathy, E11.42 - Type 2 diabetes mellitus with diabetic polyneuropathy, E78.5 - Hyperlipidemia, unspecified, I10 - Essential (primary) hypertension Microalbumin, Random (w Creat) Today E11.21 - Type 2 diabetes mellitus with diabetic nephropathy, E11.42 - Type 2 diabetes mellitus with diabetic polyneuropathy, E78.5 - Hyperlipidemia, unspecified, I10 - Essential (primary) hypertension Hemoglobin A1c Today E11.21 - Type 2 diabetes mellitus with diabetic nephropathy, E11.42 - Type 2 diabetes mellitus with diabetic polyneuropathy, E78.5 - Hyperlipidemia, unspecified, I10 - Essential (primary) hypertension Basic Metabolic Panel Today E11.21 - Type 2 diabetes mellitus with diabetic nephropathy, E11.42 - Type 2 diabetes mellitus with diabetic polyneuropathy, E78.5 - Hyperlipidemia, unspecified, I10 - Essential (primary) hypertension Lipid Panel Today E11.21 - Type 2 diabetes mellitus with diabetic nephropathy, E11.42 - Type 2 diabetes mellitus with diabetic polyneuropathy, E78.5 - Hyperlipidemia, unspecified, I10 - Essential (primary) hypertension
[2025-02-22 13:52] VITALS: BP 120/58; PULSE 73; RESP 16; TEMP 36.7; O2SAT 97; BMI 22.3
--- OUTSIDE RECORDS SUMMARY | 2025-02-22 16:37 | XMS_ITS | Patient Health Record ---
[facility] Address [address] [place] [address] Care Team Providers Care Microsoft Dynamics Developer Name Role Phone Raimundo Tse MD Primary Care Provider Unavailab safia Bunch Doris Unavailable [phone] Allergies Allergen (clinical drug ingredient) Drug/Non Drug [...] Lab: Notes/Report: HEMOGLOBIN A1C % (HH) 8.3 HEMOGLOBIN A1C (GLYCOHEMOGLO BIN) Reviewed date:12/19/2024 02:31:46 PM Interpretation: Performing Lab: Notes/Report: HEMOGLOBIN A1C % (HH) 8.8 Reason For Referral No Information Medications Medication SIG (Take, Route, Frequency, Duration) Notes Start Date End Date Status Pravastatin Sodium 10 MG Orally Once a day Active Magnesium 250 MG Orally Once a day Active Cefuroxime Axetil No t-Taking Lantus Not-Taking metFORMIN HCl 500 MG Orally Twice a day Not-Taking Pantoprazole Sodium Not-Taking Tresiba FlexTouch 100 UNIT/ML Subcutaneous Not-Taking zzzCompression Stockings 20-30mm Hg . . .; Duration: . Not-Takin g Extra Depth Orthopedic Shoes (1 Pair) with Customized Heat Molded Multidensity Innersoles (3 Pair) as directed Dx: NIDDM/Polyneuropathy (E11.42), Hammertoe Foot Deformity (M20.41,M20.42), Preulcerative Skin Lesion(s) (L85.1 06/22/2018 Not-Taking Omeprazole 20 MG Orally Once a day Not-Taking Gabapentin 100 MG Orally Once a day Not-Taking hydroCHLOROthiazide 12.5 MG Orally Not-Taking Lisinopril 40mg Not- Taking Extra Depth Orthopedic Shoes (1 Pair) with Customized Heat Molded Multidensity Innersoles (3 Pair) as directed Dx: NIDDM/Polyneuropathy (E11.42), Hammertoe Foot Deformity (M20.41,M20.42), Preulcerative Skin Lesion(s) (L85.1 07/23/2019 Not-Taking Extra Depth Orthopedic Shoes (1 Pair) with Customized Heat Molded Multidensity Innersoles (3 Pair) as directed Dx: NIDDM/Polyneuropathy (E11.42), Hammertoe Foot Deformity (M20.41,M20.42), Preulcerative Skin Lesion(s) (L85.1 09/10/2024 Active NovoLOG Mix 70/30 FlexPen Not-Taking Metoprolol Tartrate 25 MG as directed Orally Active amLODIPine Besylate 10 MG Orally Active Basaglar KwikPen 100 UNIT/ML ADMINISTER 20 UNITS UNDER THE SKIN EVERY MORNING Subcutaneous; Duration: 68 Days Active Centrum Silver Activ e Aspirin 81 MG 1 tablet Orally Once a day Active MiraLax Active Furosemide 20 MG as directed Orally Active Sertraline HCl 25 MG as directed Orally Active glipiZIDE Not-Taking Immunizations Vaccine Route Administration Date Status Comme nts Influenza Unknown 06/23/2017 Refused Influenza Unknown 03/13/2020 Administered Influenza Unknown 04/13/2021 Administered Influenza Unknown 03/17/2023 Administered Influenza Unknown 04/05/2024 Administered COVID-19 Moderna Vaccine Unknown 10/16/2021 Administered First Dose: 07/24/20 Second Dose: 08/29/2020 3rd: 05/02/21 Social History Tobacco Use: Social History Observation Description Date Details (start date - stop date) Never Smoker NA - NA Tobacco use other than smoking: Question Answer Notes Are you an other tobacco user? No Tobacco Control (Standard) Question Answer Notes Tobacco use: Nonsmoker Additional Findings: Tobacco non-user Current no nsmoker AUDIT-C (Standard) Question Answer Notes Did you have a drink containing alcohol in the p ast year? No Points 0 Interpretation Negative Problems Problem Type SNOMED Code ICD Code Onset Dates Problem Status W/U Status Risk Notes Problem Polyneuropathy due to type 2 diabetes mellitus (554697599) Type 2 diabetes mellitus with diabetic polyneuropathy (E11.42) Active confirmed Vital Signs Blood pressure diastolic 60 mm Hg 12/19/2024 Height 5 ft 2 in in 12/19/2024 Blood pressure systolic 132 mm Hg 12/19/2024 Weight 120 lbs 12/19/2024 BMI 21.95 kg/m2 12/19/2024 Procedures Procedure Date Ordered Date Performed Result Body Sit e 86676-CHZQ SKIN LESIONS, OVER 4 04/12/2024 N/A X8641-AGFNEXMI DYSTROPHIC NAILS ANY # 04/12/2024 N/A 83937-FEPF SKIN LESIONS, OVER 4 09/10/2024 N/A J0487-ZHEBZPKW DYSTROPHIC NAILS ANY # 09/10/2024 N/A 86165-DAKS SKIN LESIONS, OVER 4 12/19/2024 N/A R4050-GFCBIJRU DYSTROPHIC NAILS ANY # 12/19/2024 N/A Encounters Encounter [facility] Date [facility] [address] [facility]12/2024 Doris Black Type 2 diabetes mellitus with diabetic polyneuropathy E11.42 [facility] [address] [address] 09/10/2024 Doris Black Type 2 diabetes mellitus with diabetic polyneuropathy E11.42 ; Other hammer toe(s) (acquired), right foot M20.41 and Other hammer toe(s) (acquired), left foot M20.[address] [address] 12/19/2024 Doris Black Type 2 diabetes mellitus with diabetic polyneuropathy E11.42 [facility] [place] [address] [place] [address] 07/11/2024 Doris Bunch Assessments Encounter Date Diagnosis (ICD Code) Assessment Notes Treatment Notes Treatment Clinical Notes Section Notes 04/12/2024 Type 2 diabetes mellitus with diabetic polyneuropathy (ICD-10 - E11.42) 09/10/2024 Other hammer toe(s) (acquired), right foot (ICD-10 - M20.41) Patient Educated with: DIABETIC FOOT CARE INSTRUCTIONS. pdf (DIABETIC FOOT CARE INSTRUCTIONS. pdf) 09/10/2024 Type 2 diabetes mellitus with diabetic polyneuropathy (ICD-10 - E11.42) 12/19/2024 Type 2 diabetes mellitus with diabetic polyneuropathy (ICD-10 - E11.42) 09/10/2024 Other hammer toe(s) (acquired), left foot (ICD-10 - M20.42) Plan Of Treatment Pending Test Test Name Order Date 26216-Iibzexqo Plate 11/30/2021 34004-URAR SKIN LESIONS, OVER 4 12/01/19 22 77019-ITKK SKIN LESIONS, OVER 4 09/08/19 22 06435-CJMU SKIN LESIONS, OVER 4 03/02/20 21 31820-WMRC SKIN LESIONS, OVER 4 05/28/20 21 53591-CIBP SKIN LESIONS, OVER 4 02/04/20 20 85377-JFVK SKIN LESIONS, OVER 4 05/12/20 20 83696-QPLF SKIN LESIONS, OVER 4 08/12/19 21 98836-TTXP SKIN LESIONS, OVER 4 11/18/19 21 67228-UYRL SKIN LESIONS, OVER 4 02/05/20 22 67785-DKOQ SKIN LESIONS, OVER 4 04/22/20 22 29725-WBDH SKIN LESIONS, OVER 4 07/12/19 23 27699-AQCR SKIN LESIONS, OVER 4 10/12/19 23 85949-INJT SKIN LESIONS, OVER 4 01/11/20 23 67291-GJGQ SKIN LESIONS, OVER 4 07/21/19 24 36333-MKTH SKIN LESIONS, OVER 4 10/03/19 24 41600-OXDZ SKIN LESIONS, OVER 4 01/16/20 24 75777-ZLXI SKIN LESIONS, OVER 4 04/12/20 24 90438-UGDF SKIN LESIONS, OVER 4 09/11/19 25 98996-NKJU SKIN LESIONS, OVER 4 12/20/19 48230-ZBDJ SKIN LESIONS, 2 TO 4 06/23/19 97385-BNTE SKIN LESIONS, 2 TO 4 12/23/19 92397-RQRM SKIN LESIONS, 2 TO 4 06/22/19 47696-BXCM SKIN LESIONS, 2 TO 4 10/13/19 59741-BMLV SKIN LESIONS, 2 TO 4 01/12/20 94467-JOTO SKIN LESIONS, 2 TO 4 04/16/20 33739-SHAU SKIN LESIONS, 2 TO 4 07/23/19 96420-CBJJ SKIN LESIONS, 2 TO 4 10/29/19 74317-JWRI NAIL(S) 10/29/2019 40313-VOOF NAIL(S) 07/23/2019 25416-EELR NAIL(S) 04/16/2019 19041-JSVE NAIL(S) 01/11/2019 53648-JBTY NAIL(S) 10/12/2018 10912-COUF NAIL(S) 06/22/2018 56532-DIKH NAIL(S) 12/22/2017 29986-EHVE NAIL(S) 06/23/2017 92823-WGAZ NAIL(S) 11/17/2020 43922-TLQR NAIL(S) 08/11/2020 97776-YCSK NAIL(S) 05/12/2020 22783-OBZR NAIL(S) 02/04/2020 92249-FHHS NAIL(S) 05/28/2021 90047-UGYA NAIL(S) 03/02/2021 63522-MUTN NAIL(S) 09/07/2021 51332-PYAC NAIL(S) 11/30/2021 85359-JEDE NAIL(S) 01/10/2023 80388-CAVK NAIL(S) 10/11/2022 92802-AIRH NAIL(S) 07/12/2022 14317-NJBY NAIL(S) 04/22/2022 07880-KUKP NAIL(S) 02/04/2022 U2895-ETNYYNXF DYSTROPHIC NAILS ANY # B2184-VWDNSLYO DYSTROPHIC NAILS ANY # G2324-KOURXVIW DYSTROPHIC NAILS ANY # V3069-OMKWGIFR DYSTROPHIC NAILS ANY # E7642-GQMYTVFN DYSTROPHIC NAILS ANY # K2047-MKODWJWE DYSTROPHIC NAILS ANY # S2277-QDURKTFF DYSTROPHIC NAILS ANY # Next Appt Details Provider Name:Doris Bunch , 03/21/2025 02:30:00 PM, [address] [facility], [place], [address], Insurance Providers Payer Name Payer Address Payer Phone Subscriber Number Group Number Insured Name Patient Relationship to Insured Coverage Start Date Coverage End Date Medicare National Govt [employer] [address] [place] [address] [id number] Aris Martina Self - patient is the insured 1 [employer] [address] [place] [address] [id number] Aris Martina Self - patient is the insured Medical (General) History Medical History History ICD Code Back,Hip,and Knee pain Broken bones CAD (Cholesterol) type II diabetes High blood pressure Chicken pox Transfusions Hyperlipidemia dyslipidemia Cancer Other hammer toe(s) (acquired), right fo ot M20.41 Other hammer toe(s) (acquired), left patricia t M20.42 PlantarFlexion of metatarsal of right fo ot M21.6X1 Venous insufficiency I87.2 Hallux valgus (acquired), right foot M20 .11 Neuropathy G62.9 Hallux valgus (acquired), left foot M20. 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
--- OUTSIDE RECORDS SUMMARY | 2025-02-22 16:37 | XMS_ITS | Clinical Summary ---
Author Organization [facility] Address [address] [place] [address] Phone Care Team Providers Care Stock House Worker Name Role Phone Raimundo Tse MD Primary Care Provider [phone] Allergies Active Allergy Reactions Criticality Noted Date Comments Amitriptyline 08/18/2023 Other Reaction(s): Unknown Atenolol 08/18/2023 Other Reaction(s): Unknown Atorvastatin 08/18/2023 Other Reaction(s): Unknown Corticosteroids (Glucocorticoids) 08/18/2023 Other Reaction(s): blood sugar Diltiazem Hcl 08/18/2023 Other Reaction(s): Unknown Fluoxetine Unknown 08/18/2023 Gabapentin 08/18/2023 Other Reaction(s): Unknown House Dust Mite Unknown 08/18/2023 Loratadine Unknown 08/18/2023 Simvastatin Unknown 08/18/2023 Zolpidem 08/18/2023 Other Reaction(s): Unknown Medications insulin aspart protamine-insul in aspart (NOVOLOG MIX 70/30) 100 unit/mL (70-30) injection pen NovoLOG Mix 70/30 FlexPen Active metoprolol tartrate (LOPRESSOR) 25 MG tablet Take 1 tablet by mouth 2 (two) times a day. 07/01/2023 Active aspirin 81 mg chewable tablet 1 tablet Orally Once a day Active pravastatin (PRAVACHOL) 10 MG tablet Orally Once a day Active sertraline (ZOLOFT) 50 MG tablet 25 mg. 06/11/2023 Active furosemide (LASIX) 20 MG tablet as directed Orally Active amLODIPine (NORVASC) 10 MG tablet Take 10 mg by mouth daily. Active Family History Medical History Relation Comments Diabetes Father Diabetes Mother Hypertension Mother Stroke Mother Relation Status Comments Father Mother Social History Tobacco Use Types Packs/Day Years Used Date Smoking Tobacco: Never Smokeless Tobacco: Never Tobacco Cessation:Counseling Given: Not Answered Alcohol Use Standard Drinks/Week Comments Not Currently 0 (1 standard drink = 0.6 oz pur e alcohol) Education Answer Date Recorded Are you interested in more education? Not on andres e 08/04/2023 Are you concerned about learning? Not on file 08/04/2023 No 08/04/2023 No 08/04/2023 Digital Access Answer Date Recorded No 08/04/2023 No 08/04/2023 Reliable internet access at home? Not on file 08/04/2023 Device with a working camera? Not on file Comments Unknown Sex and Gender Information Value Date Recorded Sex Assigned at Not on file Legal Sex Female 2:26 PM EST Gender Identity Not on file Sexual Orientation Not on file Last Filed Vital Signs Vital Sign Reading Time Taken Comments Blood Pressure 154/74 09/30/2023 9:23 AM EDT Pulse 66 09/30/2023 9:23 AM EDT Temperature - - Respiratory Rate - - Oxygen Saturation 95% 09/30/2023 9:23 AM EDT Inhaled Oxygen Concentration - - Weight 56.7 kg (125 lb) 08/18/2023 3:20 PM EST Height 151.1 cm (4' 11.5 ) 08/18/2023 3:20 PM ES T Body Mass Index 24.82 08/18/2023 3:20 PM EST Plan of Treatment Health Maintenance Due Date Last Done Comments Adult Td,Tdap Booster 1935 DEPRESSION SCREENING 1947 PNEUMOCOCCAL VACCINES (50+ years) (1 of 1 - PCV) 12/29/1985 ZOSTER VACCINES (1 of 2) 12/29/1985 OSTEOPOROSIS SCREENING INITIAL (ONE-TIME) 12/29/2000 RSV VACCINE (1 - 1-dose 75+ series) 12/29/2010 INFLUENZA VACCINE (#1) 2025 03/17/2023 COVID-19 VACCINE ( - season) 2025 10/16/2021, 05/02/2021, 08/29/2020, Additional history exists HEPATITIS A VACCINES Aged Out No long er eligible based on patient's age to complete this topic HIB VACCINES Aged Out No longer eligi ble based on patient's age to complete this topic MENINGOCOCCAL VACCINES (ACWY) Aged Out No longer eligible based on patient's age to complete this topic MENINGOCOCCAL VACCINES (B) Aged Out N o longer eligible based on patient's age to complete this topic Medical Devices Not on file Insurance [employer] SUPPLEMENT MEDICARE PART A & B [employer] MEDEX SUPPLEMENT MEDICARE PART A & [place] [address] [place] [address] MEDEX SUPPLEMENT MEDICARE PART A & B [employer] SUPPLEMENT MEDICARE PART A & B [employer] SUPPLEMENT MEDICARE PART A & B [employer] SUPPLEMENT MEDICARE PART A & B Care Teams Stock House Worker Relationship Specialty Start Date End Date Raimundo Tse MD [address] [place] [address] [place] [address] PCP - General Internal Medicine 08/04/23 Additional Source Comments The information contained in this document represents components of the legal health record. It is not the complete legal health record.[facility]
--- OUTSIDE RECORDS SUMMARY | 2025-02-22 16:37 | XMS_ITS | Encounter Summary ---
Author Organization [facility] Address [address] [place] [address] [place] [address] Phone Care Team Providers Care Food Service Employee Name Role Phone Raimundo Tse MD Primary Care Provider [phone] Encounter Details Date Type Department Care Team (Late st Contact Info) Description 09/30/2023 Procedure Pass OR Admitting Dept - Virtual Department [address] [place] [address] Social History Tobacco Use Types Packs/Day Years Used Date Smoking Tobacco: Never Smokeless Tobacco: Never Alcohol Use Standard Drinks/Week Comments Not Currently [...] on file Sexual Orientation Not on file documented as of this encounter Plan of Treatment Not on file documented as of this encounter Visit Diagnoses Not on filedocumented in this encounter Care Teams Food Service Employee Relationship Specialty Start Date End Date Raimundo Tse MD [address] [place] [address] [place] [address] PCP - General Internal Medicine 08/04/23 documented as of this encounter Additional Source Comments The information contained in this document represents components of the legal health record. It is not the complete legal health record.[facility]
--- OUTSIDE RECORDS SUMMARY | 2025-02-22 16:37 | XMS_ITS | Clinical Summary ---
Author Organization [facility] [address] [facility] Address [address] [place] [address] Phone Care Team Providers Care Med Spa Manager Name Role Phone Raimundo Tse MD Primary Care Provider [phone] Allergies Active Allergy Reactions Criticality Noted Date Comments Amitriptyline 08/18/2023 Other Reaction(s): Unknown Atenolol 08/18/2023 Other Reaction(s): Unknown Atorvastatin 08/18/2023 Other Reaction(s): Unknown Corticosteroids (Glucocorticoids) 08/18/2023 Other Reaction(s): blood sugar Diltiazem Hcl 08/18/2023 Other Reaction(s): Unknown Fluoxetine Unknown 08/18/2023 Gabapentin 08/18/2023 Other Reaction(s): Unknown House Dust Mite Unknown 08/18/2023 Loratadine Unknown 08/18/2023 Simvastatin Unknown 08/18/2023 Zolpidem 08/18/2023 Other Reaction(s): Unknown Medications multivit with minerals/lutein (MULTIVITAMIN 50 PLUS ORAL) Take 1 Tablet by mouth daily. Active amLODIPine (NORVASC) 10 mg tablet Take 1 Tablet by mouth daily. Active aspirin 81 mg EC tablet Take 1 Tablet by mouth daily. Active furosemide (LASIX) 20 mg tablet Take 1 Tablet by mouth daily. Active insulin glargine,hum.rec .anlog (Basaglar KwikPen U-100 Insulin) 100 unit/mL (3 mL) injection pen Inject 22-24 Units into the skin every morning. 04/10/2024 Active magnesium oxide 500 mg magnesium tablet Take 1 Tablet by mouth daily. Active pantoprazole (PROTONIX) 40 mg EC tablet Take 1 Tablet by mouth daily. Active pravastatin (PRAVACHOL) 10 mg tablet Take 1 Tablet by mouth daily. Active sertraline (ZOLOFT) 25 mg tablet Take 1 Tablet by mouth daily. Active metoprolol tartrate (LOPRESSOR) 25 mg tablet Take 1 tablet (25 mg total) by mouth 1 (one) time each day. 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, with long-term current use of insulin, unspecified CKD stage (CMS/HCC V24, CMS/HCC V28) 24 units daily 30 mL 1 09/27/2024 Active Encounters Date Type Department Care Team Description 12/05/2024 Telephone Endocrinology - [place] [id number] [place] [address] Laureen Ricks MD 11/29/2024 Telephone Endocrinology - [facility] [place] [address] [place] [address] Jyothi Conley PA from Last 3 Months Social History Tobacco Use Types Packs/Day Years Used Date Smoking Tobacco: Never Smokeless Tobacco: Never Tobacco Cessation:Counseling Given: Not Answered Alcohol Use Standard Drinks/Week Comments Not Currently 0 (1 standard drink = 0.6 oz pur e alcohol) Comments Unknown Sex and Gender Information Value Date Recorded Sex Assigned at Not on file Legal Sex Female 11:17 AM EST Gender Identity Not on file Sexual Orientation Not on file Obstetrics History Last Filed Vital Signs Vital Sign Reading Time Taken Comments Blood Pressure 132/65 10/04/2024 4:33 PM EDT Pulse 95 10/04/2024 4:33 PM EDT Temperature 35.7 C (96.3 F) 10/04/2024 4:33 PM EDT Respiratory Rate - - Oxygen Saturation 98% 10/04/2024 4:33 PM EDT Inhaled Oxygen Concentration - - Weight 53.5 kg (118 lb) 10/04/2024 4:33 PM EDT Height 154.9 cm (5' 1 ) 10/04/2024 4:33 PM EDT Body Mass Index 22.3 10/04/2024 4:33 PM EDT Plan of Treatment Upcoming Encounters Date Type Department Care Team (Late st Contact Info) Description 05/03/2025 4:20 PM EST Office Visit [place]ocrin[place] [facility] [address] [place] [address] Jyothi Conley PA [address] [place] [address] Health Maintenance Due Date Last Done Comments DTaP,Tdap,and Td Vaccines (1 - Tdap) 12/29/1954 Pneumococcal Vaccine: 50+ Years (1 of 2 - PCV) 12/29/1954 Zoster Vaccines (1 of 2) 12/29/1954 RSV Immunization Adult Patients (1 - 1-dose 75+ series) 12/29/2010 Cholesterol Screening (Lipid Panel) 04/09/2024 Falls Risk Assessment 04/09/2024 Medicare Annual Wellness Visit 04/09/2024 Osteoporosis Screening (Bone Density Screening) 04/09/2024 Social Influencers of Health Screening 04/09/2024 Depression Screening 06/13/2024 COVID-19 Vaccine (6 - Moderna risk season) 2025 03/08/2024, 10/16/2021, 05/02/2021, Additional history exists Influenza Vaccine (#1) 2025 03/08/2024, 2022 Hypertension/CHF/CAD Annual BMP Blood Test 10/05/2025 10/05/2024, 03/16/2024, 03/16/2024 HIB Vaccines Aged Out No longer eligi ble based on patient's age to complete this topic HPV Vaccines Aged Out No longer eligi ble based on patient's age to complete this topic Hepatitis A Vaccines Aged Out No long er eligible based on patient's age to complete this topic Hepatitis B Vaccines Aged Out No long er eligible based on patient's age to complete this topic IPV Vaccines Aged Out No longer eligi ble based on patient's age to complete this topic MMR Vaccines Aged Out No longer eligi ble based on patient's age to complete this topic Meningococcal ACWY Vaccine Aged Out N o longer eligible based on patient's age to complete this topic Meningococcal B Vaccine Aged Out No l onger eligible based on patient's age to complete this topic RSV Immunization Patients Under 20 months Aged Out No longer eligible based on patient's age to complete this topic Varicella Vaccines Aged Out No longer eligible based on patient's age to complete this topic Procedures Procedure Name Priority Date/Time Associated Diagnosis Comments BASIC METABOLIC PANEL Routine 10/05/2024 2:08 PM EDT Type 2 diabetes mellitus with chronic kidney disease, with long-term current use of insulin, unspecified CKD stage ([facility] V24, [facility] V28) from Last 3 Months or Most Recently Relevant to Health Maintenance Results * (ABNORMAL) Basic metabolic panel (10/05/2024 2:08 PM EDT) Sodium 138 133 - 145 mmol/L LAB CHEMISTRY METHOD 10/05/2024 4:48 PM [facility] Potassium 4.3 3.5 - 5.5 mmol/L LAB CHEMISTRY METHOD 10/05/2024 4:48 PM [facility] Chloride 102 96 - 110 mmol/L LAB CHEMISTRY METHOD 10/05/2024 4:48 PM [facility] CO2 32 21 - 32 mmol/L LAB CHEMISTRY METHOD 10/05/2024 4:48 PM [facility] Anion Gap 4 3 - 11 LAB CHEMISTRY METHOD 10/05/2024 4:48 PM [facility] Glucose 181(H) 70 - 100 mg/dL LAB CHEMISTRY METHOD 10/05/2024 4:48 PM [facility] BUN 28(H) 5 - 25 mg/dL LAB CHEMISTRY METHOD 10/05/2024 4:48 PM [facility] Creatinine 1.36(H) 0.50 - 1.10 mg/dL LAB CHEMISTRY METHOD 10/05/2024 4:48 PM [facility] eGFR 38(L) >=60 mL/min/1. 73m2 LAB CHEMISTRY METHOD 10/05/2024 4:48 PM EDT [facility] Comment:Calculation based on the Chronic Kidney Disease Epidemiology Collaboration (CKD-EPI) equation refit without adjustment for race. BUN/Creatinine Ratio 20.6 LAB CHEMISTRY METHOD 10/05/2024 4:48 PM EDT [facility] Calcium 9.4 8.5 - 10.5 mg/dL LAB CHEMISTRY METHOD 10/05/2024 4:48 PM EDT [facility] Blood Venous blood specimen / Unknown Venipuncture / Unknown 10/05/2024 2:08 PM EDT 10/05/2024 2:08 PM EDT us Jyothi PERRIN LAB BLOOD ORDERABLES Final Resul t [facility] [address] [place] [address], from Last 3 Months or Most Recently Relevant to Health Maintenance Insurance MEDICARE [facility] MEDEX Care Teams Med Spa Manager Relationship Specialty Start Date End Date Raimundo Tse MD [address] [place] [address] [place] [address] PCP - General Internal Medicine 06/11/24
--- OUTSIDE RECORDS SUMMARY | 2025-02-22 16:37 | XMS_ITS | Patient Health Record ---
Author Organization [facility] Address [address] [place] [address] Care Team Providers [facility] [employer] [facility] [employer] Name Role Phone Dedrick (RETIRED) Raimundo HOLLOWAY Primary Care Provider Unavailable Jonn Landa Unavailable [phone] Reason For Referral No Information Medications Medication SIG (Take, Route, Frequency, Duration) Notes Start Date End Date Status glipiZIDE 5 MG 1/2 tablet Orally tw ice a day Active metFORMIN HCl 500 MG 1 tablet with meals Orally Twice a day Active Venlafaxine HCl ER 75 MG TAKE 1 CAPSULE BY MOUTH EVERY MORNING Oral for 30 Active Magnesium 250 MG 1 tablet with a meal Orally Once a day Active Baby Aspirin 81 MG 1 TABLET ORALLY ONCE A DAY Active Metoprolol Tartrate 25 MG 1 tablet Orall y Twice a day Active Omeprazole 20 MG 1 capsule Orally prn Active Glucovance 2.5-500 MG 1 tablet with a me al Orally TWICE A DAY Active hydroCHLOROthiazide 12.5 MG 1 capsule Or ally Once a day Active Lisinopril 40 MG 1 tablet Orally Once a day Active Immunizations Vaccine Route Administration Date Status Comme nts Flu vaccine no Preserv 3 and > Unknown 03/26/2015 Admin istered Problems Problem Type SNOMED Code ICD Code Onset Dates Problem Status W/U Status Risk Notes Problem 313117659 Fatty liver (K76.0) Active confirmed Problem 50267897 Constipation, unspecified constipation type (K59.00) Active confirmed Plan Of Treatment Pending Test Test Name Order Date LIVER PROFILE 06/27/2015 Insurance Providers Payer Name Payer Address Payer Phone Subscriber Number Group Number Insured Name Patient Relationship to Insured Coverage Start Date Coverage End Date MEDICARE OF [place] [address] [place] [address] [phone] [id number] NAILA FINLEY Self - patient is the insured [employer] CLAIMS [address] [place] [address] [id number] NAILA FINLEY Self - patient is the insured Medical (General) History Medical History History ICD Code Colonoscopy 12-30-2005--neg. except for h yperplastic polyps NIDDM Hypertension Denies [place],CVA,Lung disease,renal disease Fatty liver--on Ursodiol Surgical History Surgery Date(Month/Year) Complete hysterectomy
== END 2025-02-22 14:25 | disposition home or self-care (01) ==
LOC: HO.HMCHD 13:44
PROVIDERS: PCP Family Medicine; Visit Provider Physician Assistant
DX: E11.21 Type 2 diabetes mellitus with diabetic nephropathy (principal); E78.5 Hyperlipidemia, unspecified; I10 Essential (primary) hypertension; F32.9 Major depressive disorder, single episode, unspecified; E11.42 Type 2 diabetes mellitus with diabetic polyneuropathy

== ENCOUNTER → 2025-02-22 13:43 | Outpatient (BNVA) | payer MEDICARE, SELFPAY | PROVIDERS: PCP Family Medicine; Visit Provider Physician Assistant | DX: E11.21 Type 2 diabetes mellitus with diabetic nephropathy (principal); E78.5 Hyperlipidemia, unspecified; I10 Essential (primary) hypertension; F32.9 Major depressive disorder, single episode, unspecified; E11.42 Type 2 diabetes mellitus with diabetic polyneuropathy | CPT/HCPCS: 96127; 99202 ==